=== PATIENT | male | born 1955 | race Caucasian/White ===

== ENCOUNTER → 2018-07-14 15:45 | Outpatient (CLI) | payer OTHER, SELFPAY ==
[2018-07-14 16:38] LABS: Add Manual Diff / Slide Review NO; Basophils Percent Auto 3.7 % (0-2); Eosinophils Percent Auto 3.9 % (2-4); Hematocrit 36.8 % (41-53); Hemoglobin 12.8 g/dL (13.5-17.5); Lymphocytes Percent Auto 27.6 % (25-40); Mean Corpuscular HGB Conc 34.7 % (30-36); Mean Corpuscular Hemoglobin 38.1 PG (26-34); Monocytes Percent Auto 7.6 % (3-14); Neutrophils Absolute Auto 5400 /uL (1500-7000); Neutrophils Percent Auto 57.2 % (50-75); Platelet Count 264 X10^3/uL (150-400); Red Blood Cell Count 3.35 X10^6/uL (4.5-5.9); Red Cell Distribution Width 13.7 % (11.6-14.8); White Blood Cell Count 9.5 X10^3/uL (4.5-11.0)
[2018-07-14 16:50] LABS: Blood Urea Nitrogen 24 mg/dL (9-20); Calcium 9.7 mg/dL (8.4-10.2); Carbon Dioxide 26 mmol/L (22-32); Chloride 102 mmol/L (98-107); Estimated Glomerular Filt Rate > 60.0 mL/min (>60); Glucose 114 mg/dL (80-110); HEMOLYSIS < 15 (0-50); Hemoglobin A1C% w Est Avg Glu 5.9 % (4.0-6.0); Potassium 4.6 mmol/L (3.4-5.1); Sodium 141 mmol/L (137-145)
[2018-07-14 16:51] LABS: INR 1.1 (0.9-1.3); Prothrombin Time 12.6 SECONDS (10.1-12.7)
[2018-07-14 16:54] LABS: PTT Partial Thromboplastin Tim 29 SECONDS (26.4-36.2)
== END ==
PROVIDERS: PCP Family Medicine; Visit Provider Orthopaedic Surgery Orthopaedic Surgery of the Spine
DX: Z01.812 Encounter for preprocedural laboratory examination (principal)
CPT/HCPCS: 36415; 80048; 83036; 85025; 85610; 85730; 93005

== ENCOUNTER 2018-07-16 06:38 | Inpatient (IN) | payer OTHER, SELFPAY ==
[2018-07-14 12:29] VITALS: BMI 30.5
[2018-07-16] VITALS (17 sets, daily range): BP systolic 112–133; BP diastolic 56–76; PULSE 52–66; RESP 9–59; TEMP 36.2–37; O2SAT 13–98; BMI 30.5
--- NOTE | 2018-07-16 | DI.RAD.S_ITS ---
PROCEDURE: XR LUMBAR SPINE 2-3V INDICATIONS: L4-5. L5-S1 TLIF TECHNIQUE: 2 views of the lumbar spine were acquired. COMPARISON: [facility], , -SPINE 2-3 VIEWS, 05/19/2016, 16:15. FINDINGS: 2 spot fluoroscopic intraoperative views demonstrating posterior spinal fixation with paraspinal rods and pedicle screws from L4-S1, with interbody cage grafts. There is expected intraoperative alignment. Dictated by: Nikita Laura M.D. on 07/16/2018 at 11:42 Approved by: Nikita Laura M.D. on 07/16/2018 at 11:44
[2018-07-16] MEDS: LACTATED RINGERS 1,000 ML 42 ML IV ×2 (07:00→11:54)
[2018-07-16] MEDS: CEFAZOLIN 2 GM/100 ML FROZ.PIGGY IV ×2 (07:54→16:04)
--- NOTE | 2018-07-16 08:39 | SUR.OPER ---
Prone on spine table, head in foam head support, padded chest and pelvic supports, gel pad at knees, lower legs supported by pillows; nipples, genitalia and toes free of pressure, arms secured on foam padded arm boards at <90 degrees abduction. Tape over blanket at thigh secured to table.
[2018-07-16] MEDS: BUPIVACAINE LIPOSOME 266 MG/20 ML VIAL INJ (09:12)
[2018-07-16] MEDS: BUPIVACAINE 0.25% W/ EPI VIAL 30 ML INJ (09:12)
[2018-07-16] MEDS: ACETAMINOPHEN 1,000 MG/100 ML VIAL IV (10:58)
--- NOTE | 2018-07-16 11:33 | P.OP_ITS ---
Operative Date/Time/Diagnoses Date of procedure: 07/16/18 Time of procedure: 08:21 Pre-op diagnosis: 1. L4-5, L5-S1 history of laminectomy with spinal stenosis 2. L4-5, L5-S1 spondylosis with radiculopathy Post-op diagnosis: same Procedure & Clinicians Procedure: 1. L4-5, L5-S1 Postero-lateral and posterior interbody fusion 2. L4-5, L5-S1 interbody cage placement. 3. L4-5, L5-S1 decompressive laminectomy with bilateral facetecomies 4. L4-5, L5-S1 Posterior segmental instrumentation 5. [place] of bone marrow from iliac crest 6. Utilization of microsurgical technique and operating microscope Same procedure as scheduled: Yes Indications: Patient has been having chronic back pain and worsening lumbar radiculopathy. Patient had previous lumbar hemilaminectomy with persisting radiculopathy and progressive weakness to his legs. Patient failed multiple conservative management with worsening pain weakness and numbness in her lower extremity. Patient has been having difficulty performing activity of daily living. After discussing risks benefits of treatment options, patient elected proceed with surgery. Surgeon: Albertina Martin Strategic Client Executive: Earline Luis Click Yes if Unassisted: No Anesthesia Type: General Operative Notes Closure Type: primary Specimen(s): none sent Implants & Drains: Globus revolve screws, Rise cages Applied: catheter Estimated Blood Loss (mL): 100 Blood products transfused: none Procedure in detail: Patient was seen in the preoperative area. Risks and benefits of the surgery was discussed with the patient. Informed consent was obtained from the patient and placed in the chart. Surgical site was marked. Patient was taken to the operative room. General anesthesia was administered. Prophylactic antibiotic was given to the patient less than 30 min before the incision was made. Patient was placed into a prone position on the Russell table. Patient's back was then prepped and draped in the sterile fashion. Time- out was performed at this time. Using AP and lateral C-arm imaging the interval between L4-S1 was identified and marked on patient's back. A 2 inch incision 2 in from midline was made on the left side first. The fascia was incised in line with skin incision. Globus MARS retractors was placed inside the incision and docked onto the L4 and L5 lamina. Using microsurgical technique and operating microscope, a L4 and L5 laminectomy and L4-5 L5-S1 facetectomy was performed using a Kerrison rongeur. The disc space at L4-5, L5-S1 was identified. And a total diskectomy was performed at L4-5, L5-S1 level. The endplates were decorticated using a rasp and shaver. The total diskectomy and decortication was performed at L4-5, L5- S1 level in order to to accomplish a L4-5, L5-S1 fusion. The local bone from the laminectomy and facetectomy was saved for local bone grafting. After the total diskectomy and decortication was completed, Globus viacell bone graft material was combined with local bone that was harvested earlier. At this time , a separate skin is incision was made over the iliac crest. A Jamshidi needle was inserted into the iliac crest through a separate skin incision. 5 cc of bone marrow aspiration was obtained through the separate skin incision using a Jamshidi needle from the iliac crest. The bone marrow aspiration was combined with local bone and the via cell bone grafting material. The bone grafting material was placed into the L4-5, L5-S1 interbody space along with two cages, one expandable cage at each level. The cages were expanded to their maximum height using the torque limiting screwdriver. At this time a mirror image incision was made on the right side. The fascia was incised in line with the skin incision. Globus MARS retractor was inserted and docked onto the L4-5, L5-S1 posterolateral gutter. Using the power drill, posterior-lateral decortication was performed at L4-5, L5-S1 level until bleeding cortical bone was identified. The remaining bone grafting material was placed into the L4-5 L5-S1 posterior lateral gutter he order to accomplish posterolateral fusion at the L4-5 L5-S1 levels. Using the double C-arm technique, pedicle screws were placed into the L4, L5, S1 pedicles bilaterally. This was done by placing the Jamshidi needle into the pedicles, then placing the guidewires over the Jamshidi needle, and finally placing the cannulated screws over the guidewires bilaterally. After the pedicle screws were placed, 2 titanium rods was locked into the heads of the pedicle screws using locking caps and torque limiting screwdriver. Total 6 pedicles screws were placed. After all the hardware was placed, and confirmed with AP and lateral C-arm imaging, the wound was then irrigated with sterile normal saline and packed with Ray-Akash gauze for 3 min to accomplish hemostasis. After the gauze was removed the deep fascia was closed with #1 Vicryl suture. The subcutaneous layer was closed with 2-0 Vicryl. The skin was closed with skin bill. Patient tolerated the procedure well. There were no complications. Complications: none Condition: stable Disposition: PACU Plan for aftercare: Admit to inpatient hospital
[2018-07-16] MEDS: HYDROMORPHONE 2 MG INJ 0.5 MG IV ×4 (11:50→12:27)
--- NOTE | 2018-07-16 11:57 | SUR.PHASEI ---
Urine mildly cloudy. Dr. Martin and Verónica notified. No new orderrs.
[2018-07-16] MEDS: LORazepam 2 MG/ML SYRINGE 0.5 MG IV (12:12)
[2018-07-16] MEDS: INSULIN ASPART 100 UNIT/ML 10ML VIAL SUBCUT (12:25)
--- NOTE | 2018-07-16 12:53 | SUR.PHASEI ---
Report called to Shanti
--- NOTE | 2018-07-16 12:54 | SUR.PHASEI ---
Pt c/o 10/10 Lt ankle pain, ankle wnl, weak movement to andrzej ankles. Dr. Martin notified by calling into room 3 and passing message to [employer]. No new orders.
--- NOTE | 2018-07-16 13:11 | SUR.PHASEI ---
Pt transferred to the floor. VS stable. O2 sat 95%ra, pt awake. Drsg cdi. IV saline locked. Pt reported 5/10 Lt ankle pain, able to move andrzej ankles well, +pp x2, ble warm, cap refill wnl. Belongings bag with patient.
--- NOTE | 2018-07-16 13:12 | SUR.PHASEI ---
Addendum: Report given to Shanti.
[2018-07-16] MEDS: OXYCODONE IR 5 MG TABLET 10 MG PO ×3 (14:09→23:49)
[2018-07-16] MEDS: SODIUM CHLORIDE 0.9% 1,000 ML 100 ML IV (14:11)
--- NOTE | 2018-07-16 14:28 | PC.NURSE ---
Pt admitted to room 219. Dressing to lower back is cdi s drainage. He complains of pain 9/10 to lower back and 5/10 pain to his l.ankle. Denies any numbness or tingling. He is A&Ox3 but has periods of grogginess. IV to r.hand/wrist area patent and infusing NS at 100cc/hr. Pt complains of some burning to the end of his urethra. Vaseline put on end of penis to help discomfort. Just given 2 oxycodone for discomfort about 30 minutes ago. Will check on pts pain in 30 minutes.
--- NOTE | 2018-07-16 15:31 | PT.IIE ---
Current Diagnoses Foot drop, left foot (07/16/18) Spinal stenosis, lumbar region without neurogenic claudication (07/16/18) Postlaminectomy syndrome, not elsewhere classified (07/16/18) Surgery Performed Operation Date: 07/16/18 07:45 Actual Procedures p L4-5, L5-S1 TLIF w/Posterior Instru. - Albertina Martin MD Surgical History (Last Updated 07/14/18 @ 12:42 by Faye Elizabeth RN) History of arthroscopy of both knees (Acute) History of arthroscopy of both shoulders (Acute) S/P CABG x 3 (Acute ~2001) S/P lumbar microdiscectomy (Acute 05/19/16) Medical History (Last Updated 07/14/18 @ 13:36 by Faye Elizabeth RN) ASCVD (arteriosclerotic cardiovascular disease) (Acute) Atrial fibrillation/flutter (Acute) CHF (congestive heart failure) (Acute) DDD (degenerative disc disease) (Acute) HTN (hypertension) (Acute) Hyperlipidemia (Acute) Murmur (Acute) Palpitations (Acute) Spinal stenosis (Acute) Type 2 diabetes mellitus (Acute) Physical Therapy Inpatient Evaluation/Re-Eval M1 PT/OT-IP Prior Functional Status Start: 07/16/18 17:12 Freq: NEEDED Status: Active Protocol: Document 07/16/18 15:31 AB (Rec: 07/16/18 17:26 AB [id number]) Medical Review Prior Functional Status Medical History Reviewed Yes Communication able to make needs known Mobility and Gait pt stated that he is independent with all mobilities and ambulation without AD Social History Household Members spouse Living Arrangements House Number of Floors (Floors) Two Floors Number of Stairs To Enter/Railing? pt stays on main level of the house; has 2 steps to enter without rails Home Environment High Toilet Tub/Shower Employment Status Retired Additional Social History Comment stated that they don't have a FWW but they may have access to a SPC; has a hand held shower but is not installed yet M2 PT-IP Current Condition Start: 07/16/18 17:12 Freq: NEEDED Status: Active Protocol: Document 07/16/18 15:31 AB (Rec: 07/16/18 17:26 AB [id number]) Physical Therapy Current Condition Current Condition Evaluation Date 07/16/18 Treatment Diagnosis s/p L4-5, L5-S1 TLIF and lami; difficulty in walking Onset Date 07/16/18 Precautions Lumbar Precautions Log Roll No Twisting Limit Bending Lifting Restriction of 10 lbs Gait Belt above Incisional Area M3 PT-IP Subjective Start: 07/16/18 17:12 Freq: NEEDED Status: Active Protocol: Document 07/16/18 15:31 AB (Rec: 07/16/18 17:26 AB [id number]) Subjective Physical Therapy Visit Type Type Initial Evaluation Visit Start Time 15:31 Visit Stop Time 16:23 Total Visit Minutes 52 Number of DRAIN CLEANER Visits 0 Physical Therapy Visit Comments Patient Comments pt agreeable to get up Therapy Pain Assessment Pain When Pain Assessed At Rest Pain Present Pain Present Pain Reported Location Left Lower Leg Intensity 9 Scale Used Numeric (1 - 10) Pain Management Techniques Re-positioning Timing of Activity with Medications M4 PT-IP Mobility and Gait Start: 07/16/18 17:12 Freq: NEEDED Status: Active Protocol: Document 07/16/18 15:31 AB (Rec: 07/16/18 17:26 AB [id number]) PT-Bed Mobility Assessment Rolling Type of Rolling Log Rolling Level of Assist Contact Guard Assistance Supine to Sit Supine to Sit Contact Guard Assistance Sit to Supine Sit to Supine Contact Guard Assistance Scooting Scooting to Edge of Bed Contact Guard Assistance PT-Transfer Assessment Sit to and From Stand Sit to and from Stand Minimal Assistance 1 Person Assistance Use of Upper Extremities Equipment Transfer Assistive Device Gait Belt Front Wheeled Walker Orthotic/Prosthetic Devices or Brace: No Transfers Transfer Destination Bed Transfer Technique Stand Step Pivot Transfer Ability Level of Assist Minimal Assistance 1 Person Assistance Use of Upper Extremities Comments Mobility Comments pt agreed to sit up on chair after ambulation. positioned on chair but stated that back pain has increased and just wants to go back to bed. assisted pt back to bed. Gait Assessment Gait Gait Assistance Required: Contact Guard Assist Minimum Assistance Distance (Feet) 30 Able to Maintain Weight Bearing Status Yes During Gait Assistive Devices Assistive Device Gait Belt Front Wheeled Walker Orthotic/Prosthetic Devices or Brace: No Gait Deviations General Gait Pattern Antalgic Decreased Stride Length Decreased Feet Clearance Factors Limiting Gait Function Factors Limiting Gait Function Decreased Activity Tolerance Decreased Strength Limited Range of Motion Pain Poor Balance Poor Safety Awareness PT-Balance Assessment Sitting Balance and Reactions Static Sitting Balance Ability Good Dynamic Sitting Balance Ability Good Standing Balance and Reactions Static Standing Balance Ability Fair Dynamic Standing Balance Ability Fair Device Used FWW M5 PT-IP Objective Assessments Start: 07/16/18 17:12 Freq: NEEDED Status: Active Protocol: Document 07/16/18 15:31 AB (Rec: 07/16/18 17:26 AB [id number]) Orientation Orientation/Cognition Level of Alertness Alert Orientation Name Age Birthday Month Date Year Day of Week Place Situation Safety Awareness Understands Safety Issues Memory Description No Deficits Noted Gross Range of Motion Lower Extremity ROM Assessment Within Functional Limits Strength Lower Extremity Strength Assessment Bilaterally Impaired Comments Strength Comments LLE weaker than RLE RLE:4-/5 LLE: 3+/5 Coordination Assessment Gross Coordination Gross Coordination WNL Sensation Assessment Sensation Gross Sensation Right LE Impaired Light Touch Impaired Sensation Description Numbness Comments Sensation Comments c/o numbness from L hip down to L knee Muscle Tone Muscle Tone WNL Yes M6 PT-IP Treatment Start: 07/16/18 17:12 Freq: NEEDED Status: Active Protocol: Document 07/16/18 15:31 AB (Rec: 07/16/18 17:26 AB [id number]) Physical Therapy Treatment Education Education Provided Precautions Weight Bearing Status Post-Op Packet Safety M7 PT-IP Assessment and Plan Start: 07/16/18 17:12 Freq: NEEDED Status: Active Protocol: Document 07/16/18 15:31 AB (Rec: 07/16/18 17:26 AB [id number]) PT Summary Assessment and Plan Potential Rehabilitation Potential Good Status of Condition at Evaluation Evolving Summary Impairments Pain ROM Strength Balance Coordination Sensation Tone Cognition Bed Mobility Transfers Gait Activity Tolerance Assessment Summary pt requiring CGA to min A with mobility and will likely improve during hospital stay. pt will have his spouse to assist him at home and will complete caregiver training when appropriate. pt also has 2 steps to enter the house without rail and has to complete stair climbing prior to d/c home. pt also does not have a FWW and wants to purchase one from [employer]. will request for DME order. Goals Bed Mobility Goal Standby Assistance Transfer Goal Standby Assistance Front Wheeled Walker Gait Goal Standby Assistance Front Wheel Walker Gait Distance 200 Other Goals up/down 2 steps without rails CGA Days to Meet Goals 3 Frequency of Treatment Frequency Of Treatment Twice a Day Treatment Plan Physical Therapy Treatment Plan Bed Mobility Training Transfer Training Gait Training Therapeutic Exercise Balance Retraining Post Op Education Discharge Planning Hot or Cold Pack Neuromuscular Re-ed Coordination Retraining Manual Therapy Other Recommendations and Next Treatment ambulation, bed mobility, Focus caregiver training if appropriate, stair climbing Recommendations To Nursing Amount of Assist Needed 1 Person Assist Discharge Recommendations PT Discharge Recommendations Home with Assistance Equipment Needed for Home Before FWW: needs doctor's order Discharge
[2018-07-16] MEDS: GABAPENTIN 300 MG CAPSULE PO ×2 (16:03→20:22)
[2018-07-16] MEDS: DRONEDARONE 400 MG TABLET PO (20:22)
[2018-07-16] MEDS: CARVEDILOL 12.5 MG TABLET PO (20:22)
[2018-07-16] MEDS: ATORVASTATIN 20 MG TABLET 40 MG PO (20:22)
[2018-07-16] MEDS: DOCUSATE 100 MG CAPSULE PO (20:22)
[2018-07-16] MEDS: SENNOSIDES 8.6 MG TABLET 17.2 MG PO (20:22)
[2018-07-17] MEDS: HYDROMORPHONE 1 MG INJ 0.5 MG IV (01:04)
[2018-07-17] MEDS: hydrOXYzine pamoate 25 MG CAPSULE PO ×2 (01:04→06:11)
[2018-07-17] MEDS: SODIUM CHLORIDE 0.9% 1,000 ML 100 ML IV (01:06)
[2018-07-17] MEDS: CEFAZOLIN 2 GM/100 ML FROZ.PIGGY IV (03:01)
[2018-07-17] MEDS: OXYCODONE IR 5 MG TABLET 10 MG PO ×3 (03:04→09:28)
[2018-07-17 06:23] VITALS: BP 108/56; PULSE 58; RESP 18; TEMP 36.4; O2SAT 95
[2018-07-17 06:37] LABS: Hematocrit 31.5 % (41-53); Hemoglobin 10.7 g/dL (13.5-17.5)
--- NOTE | 2018-07-17 07:23 | PM.PNPO.1 ---
Exam Vital Signs (past 8 hours): - 07/16/18 23:59 07/17/18 06:23 Temperature 97.5 F L 97.5 F L Pulse Rate 66 58 L Respiratory Rate 20 18 Blood Pressure 120/59 L 108/56 L Pulse Oximetry 95 95 Oxygen Delivery Method Room Air Oxygen Flow Rate 0 Objective Labs Result Diagrams: 07/17/18 05:31 Assessment & Plan Post-op Postoperative Procedures Operation Date: 07/16/18 07:45 Actual Procedures Side Surgeon p L4-5, L5-S1 TLIF w/Posterior Instru. Albertina Martin MD Quality VTE Deep Vein Thrombosis/Pulmonary Embolism Present on Admission: No
[2018-07-17 07:25] VITALS: BP 119/76; PULSE 58; RESP 20; TEMP 36.9; O2SAT 96
--- NOTE | 2018-07-17 08:06 | PM.DS.1 ---
History of Present Illness Date Patient Seen: 07/17/18 Time Patient Seen: 08:07 Chief complaint: lumbar [id number] Narrative: Patient seen bedside s/p L4-5, L5-S1 transforaminal laminectomy and interbody fusion with posterior instrumentation scheduled for 07/16/2018 at [facility] with Dr. Martin. Patient is resting comfortably, and states that he has some pain but it is manageable. Denies CP, SOB, calf pain. He would like to go home today. Discharge Providers Date of admission: 07/16/18 06:38 Primary care physician: Trevor Alaniz MD Consults: 07/16/18 13:09 Consult to Occupational Therapy Evaluate & Treat Comment: Physician Instructions: Evaluate and treat Consult to Physical Therapy Evaluate & Treat Comment: Physician Instructions: Evaluate and Treat Discharge provider: Taya Byrne PA-C Discharge Date: 07/17/18 Summary Discharge Diagnosis: 1. Left foot drop 2. Lumbar post-laminectomy syndrome 3. 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 Spinal stenosis of lumbar region with radiculopathy Hospital Course: Patient admitted to the hospital s/p L4-5, L5-S1 transforaminal laminectomy and interbody fusion with posterior instrumentation scheduled for 07/16/2018 at [facility] with Dr. Martin. He tolerated the procedure well with no major complications. He was transferred to the acute care floor where he was placed on the standard lumbar spine postoperative protocol. He was seen by Physical therapy who recommended that he be discharged home. He is stable and ready for discharge on 07/17/2018. Status at Discharge Cognitive/behavioral status at discharge: Alert oriented x4 Functional status at discharge: uses cane/walker Overall status at discharge: patient is progressing back to baseline Time Spent with Patient Less than 30 minutes Exam Vital Signs (past 8 hours): - 07/17/18 06:23 07/17/18 08:38 Temperature 97.5 F L Pulse Rate 58 L 59 L Respiratory Rate 18 Blood Pressure 108/56 L 119/76 Pulse Oximetry 95 Oxygen Delivery Method Room Air Oxygen Flow Rate 0 Narrative Exam Narrative: Well-developed well-nourished no acute distress. Alert and oriented x3. Dressing on the lumbar spine is clean dry and intact. His calves are soft and compressible and no focal deficits noted. Objective Labs Result Diagrams: 07/17/18 05:31 Labs: Laboratory Results - last 24 hr 07/17/18 05:31 Hgb 10.7 L Hct 31.5 L Discharge Plan Discharge Plan Patient Disposition: Home Discharge comment: discharge if moving well, pain is controlled, and is able to urinate. change dressing prior to d/c to cover site. Discharge Med Rec/Prescriptions Prescriptions: New acetaminophen 325 mg Tablet 650 mg PO Q6HR PRN (Reason: Pain, Mild (1-3)) Qty: 0 RF: 0 docusate sodium 100 mg Capsule 100 mg PO BID Qty: 0 RF: 0 hydroxyzine pamoate 25 mg Capsule 25 mg PO Q4HR PRN (Reason: Nausea And Vomiting) 50 Days RF: 0 oxycodone 10 mg tablet See Label Instructions .ROUTE .COMPLEX PRN (Reason: pain) Qty: 40 RF: 0 Continue atorvastatin [Lipitor] 80 MG tablet 40 mg PO HS Qty: 30 RF: 0 carvedilol [Coreg] 25 MG tablet 12.5 mg PO BID Qty: 0 RF: 0 metformin [Glucophage XR] 500 MG tablet extended release 24 hr 500 mg PO DAILY Qty: 0 RF: 0 epinephrine 0.3 MG/0.3 ML auto-injector 0.3 mg IM PRN PRN (Reason: Allergic Reaction) Qty: 0 RF: 0 lisinopril 2.5 mg Tablet 2.5 mg PO DAILY RF: 0 dronedarone [Multaq] 400 mg Tablet 400 mg PO BID RF: 0 Discontinued rivaroxaban [Xarelto] 20 MG tablet 20 mg PO QDAY Qty: 0 RF: 0 hydrocodone-acetaminophen 5 MG/325 MG tablet 1 tab PO Q6HP PRN (Reason: pain) Qty: 0 RF: 0 Follow up/Referrals: Albertina Martin MD [Physician] - 07/28/18 1:40 pm (Follow up with Taya Byrne PA-C at the [facility] Provider Discharge Instructions Diet: Diet as Tolerated Activity: Weightbearing as tolerated, use walker until stable on feet. Limit bending/twisting/lifting greater than 5 lbs. Cold/Heat Therapy: Apply ice 20 minutes at a time to affected area as needed for pain/swelling. Skin/Wound/Dressing Care Report to your healthcare provider any signs of infection, such as:: chills, fever, night sweats, increased pain, unusual drainage and unusual redness Dressing: Keep dressing CDI. May shower with dressing in place but no soaking. Visit Report/Discharge Packet Instructions: DI for Transforaminal Lumbar Interbody Fusion Discharge Data Primary Care Provider: Trevor Alaniz Attending Provider: Albertina Martin Admit Date/Time: 07/16/18 06:38 Quality VTE Deep Vein Thrombosis/Pulmonary Embolism Present on Admission: No
[2018-07-17 08:38] VITALS: BP 119/76; PULSE 59
[2018-07-17] MEDS: CARVEDILOL 12.5 MG TABLET PO (08:38)
[2018-07-17] MEDS: DRONEDARONE 400 MG TABLET PO (08:38)
[2018-07-17] MEDS: GABAPENTIN 300 MG CAPSULE PO (08:39)
[2018-07-17] MEDS: METFORMIN XR 500 MG TABLET PO (08:39)
[2018-07-17] MEDS: LISINOPRIL 5 MG TABLET 2.5 MG PO (08:39)
[2018-07-17] MEDS: DOCUSATE 100 MG CAPSULE PO (08:39)
--- NOTE | 2018-07-17 09:15 | PT.IPTN ---
Current Diagnoses Foot drop, left foot (07/16/18) Spinal stenosis, lumbar region without neurogenic claudication (07/16/18) Postlaminectomy syndrome, not elsewhere classified (07/16/18) Surgery Performed Operation Date: 07/16/18 07:45 Actual Procedures p L4-5, L5-S1 TLIF w/Posterior Instru. - Albertina Martin MD Physical Therapy Treatment Note M2 PT-IP Current Condition Start: 07/16/18 17:12 Freq: NEEDED Status: Active Protocol: Document 07/17/18 09:15 [facility] (Rec: 07/17/18 10:09 [facility] [id number]) Physical Therapy Current Condition Current Condition Evaluation Date 07/16/18 Treatment Diagnosis s/p L4-5, L5-S1 TLIF and lami; difficulty in walking Onset Date 07/16/18 Precautions Lumbar Precautions Log Roll No Twisting Limit Bending Lifting Restriction of 10 lbs Gait Belt above Incisional Area M3 PT-IP Subjective Start: 07/16/18 17:12 Freq: NEEDED Status: Active Protocol: Document 07/17/18 09:15 [facility] (Rec: 07/17/18 10:09 [facility] [id number]) Subjective Physical Therapy Visit Type Type Treatment Note Visit Start Time 08:56 Visit Stop Time 09:15 Total Visit Minutes 19 Number of SUEDING MACHINE TENDER Visits 0 Physical Therapy Visit Comments Patient Comments pt wanting to d/c today, he did not sleep well but willing to walk in hallway. Therapy Pain Assessment Pain When Pain Assessed At Rest Pain Present Pain Present Pain Reported Location low back Intensity 8 Scale Used Numeric (1 - 10) M4 PT-IP Mobility and Gait Start: 07/16/18 17:12 Freq: NEEDED Status: Active Protocol: Document 07/17/18 09:15 [facility] (Rec: 07/17/18 10:09 [facility] [id number]) PT-Bed Mobility Assessment Rolling Type of Rolling Log Rolling Level of Assist Contact Guard Assistance Supine to Sit Supine to Sit Contact Guard Assistance Sit to Supine Sit to Supine Contact Guard Assistance Scooting Scooting to Edge of Bed Independent PT-Transfer Assessment Sit to and From Stand Sit to and from Stand Standby Assistance Use of Upper Extremities Equipment Transfer Assistive Device Gait Belt Front Wheeled Walker Orthotic/Prosthetic Devices or Brace: No Transfers Transfer Destination Bed Transfer Technique Stand Step Pivot Transfer Ability Level of Assist Standby Assistance Gait Assessment Gait Gait Assistance Required: Standby Assistance 1 Person Assist Distance (Feet) 300 Assistive Devices Assistive Device Gait Belt Front Wheeled Walker Orthotic/Prosthetic Devices or Brace: No Gait Deviations General Gait Pattern Antalgic Decreased Stride Length Factors Limiting Gait Function Factors Limiting Gait Function Decreased Activity Tolerance Decreased Strength Pain Poor Balance Comments Gait Comments pt with standing rest break x30 sec after gait 200 ft, mainly due to low back discomfort but no increase in pain with mobility or after treatment. Stair Climbing Assessment Evaluation Level of Assist On Stairs Standby Assistance Devices Stair Climbing Assistive Devices Right Railing Technique/Endurance Stair Climbing Direction Ascend and Descend Stair Climbing Technique Step to Step Comments Stair Climbing Comments pt used one rail at this time, discussed to use a cane up/ down to get into home. Pt has one step to get into home, then another rise into the home which he can use door frame to steady himself. M5 PT-IP Objective Assessments Start: 07/16/18 17:12 Freq: NEEDED Status: Active Protocol: Document 07/16/18 15:31 AB (Rec: 07/16/18 17:26 AB [id number]) Orientation Orientation/Cognition Level of Alertness Alert Orientation Name Age Birthday Month Date Year Day of Week Place Situation Safety Awareness Understands Safety Issues Memory Description No Deficits Noted Gross Range of Motion Lower Extremity ROM Assessment Within Functional Limits Strength Lower Extremity Strength Assessment Bilaterally Impaired Comments Strength Comments LLE weaker than RLE RLE:4-/5 LLE: 3+/5 Coordination Assessment Gross Coordination Gross Coordination WNL Sensation Assessment Sensation Gross Sensation Right LE Impaired Light Touch Impaired Sensation Description Numbness Comments Sensation Comments c/o numbness from L hip down to L knee Muscle Tone Muscle Tone WNL Yes M6 PT-IP Treatment Start: 07/16/18 17:12 Freq: NEEDED Status: Active Protocol: Document 07/17/18 09:15 [facility] (Rec: 07/17/18 10:09 [facility] [id number]) Physical Therapy Treatment Education Education Provided Precautions Safety Other Treatments Other Treatment Performed able to state his precautions and maintained them throughout session. M7 PT-IP Assessment and Plan Start: 07/16/18 17:12 Freq: NEEDED Status: Active Protocol: Document 07/17/18 09:15 [facility] (Rec: 07/17/18 10:09 [facility] [id number]) PT Summary Assessment and Plan Summary Assessment Summary POD #1 L4-5, L5-S1 TLIF. Pt able to get in/out of bed with good log roll technique and CGA, and managed stairs using one rail with SBA (pt did not want to perform without rail, discussed this with him but still wanted to use one rail for support). Pt at this time requires the use of a FWW for gait, especially when fatigued he becomes more dependent on the FWW. It is highly recommended that pt d/c with a FWW for home use due to gait impairments, as well as assist with decreased risk of falls and assistance with pain. Expect pt to be able to d/c when medically stable, likely today if pain is controlled and able to urinate (catheter taken out by RN at start of this session). Goals Bed Mobility Goal Standby Assistance Transfer Goal Standby Assistance Front Wheeled Walker Gait Goal Standby Assistance Front Wheel Walker Gait Distance 200 Other Goals up/down 2 steps without rails CGA Days to Meet Goals 3 Frequency of Treatment Frequency Of Treatment Twice a Day Treatment Plan Other Recommendations and Next Treatment CG with , review Focus precautions, gait and stairs. Recommendations To Nursing Amount of Assist Needed 1 Person Assist Discharge Recommendations PT Discharge Recommendations Home with Assistance Equipment Needed for Home Before FWW: needs doctor's order Discharge
--- NOTE | 2018-07-17 10:11 | P.DS_ITS ---
History of Present Illness Date Patient Seen: 07/17/18 Time Patient Seen: 08:07 Chief complaint: lumbar [id number] Narrative: Patient seen bedside s/p L4-5, L5-S1 transforaminal laminectomy and interbody fusion with posterior instrumentation scheduled for 07/16/2018 at [facility] with Dr. Martin. Patient is resting comfortably, and states that he has some pain but it is manageable. Denies CP, SOB, calf pain. He would like to go home today. Discharge Providers Date of admission: 07/16/18 06:38 Primary care physician: Trevor Alaniz MD Consults: 07/16/18 13:09 Consult to Occupational Therapy Evaluate & Treat Comment: Physician Instructions: Evaluate and treat Consult to Physical Therapy Evaluate & Treat Comment: Physician Instructions: Evaluate and Treat Discharge provider: Taya Byrne PA-C Discharge Date: 07/17/18 Summary Discharge Diagnosis: 1. Left foot drop 2. Lumbar post-laminectomy syndrome 3. 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 Spinal stenosis of lumbar region with radiculopathy Hospital Course: Patient admitted to the hospital s/p L4-5, L5-S1 transforaminal laminectomy and interbody fusion with posterior instrumentation scheduled for 07/16/2018 at [facility] with Dr. Martin. He tolerated the procedure well with no major complications. He was transferred to the acute care floor where he was placed on the standard lumbar spine postoperative protocol. He was seen by Physical therapy who recommended that he be discharged home. He is stable and ready for discharge on 07/17/2018. Status at Discharge Cognitive/behavioral status at discharge: Alert oriented x4 Functional status at discharge: uses cane/walker Overall status at discharge: patient is progressing back to baseline Time Spent with Patient Less than 30 minutes Exam Vital Signs (past 8 hours): - 07/17/18 06:23 07/17/18 08:38 Temperature 97.5 F L Pulse Rate 58 L 59 L Respiratory Rate 18 Blood Pressure 108/56 L 119/76 Pulse Oximetry 95 Oxygen Delivery Method Room Air Oxygen Flow Rate 0 Narrative Exam Narrative: Well-developed well-nourished no acute distress. Alert and oriented x3. Dressing on the lumbar spine is clean dry and intact. His calves are soft and compressible and no focal deficits noted. Objective Labs Result Diagrams: 07/17/18 05:31 Labs: Laboratory Results - last 24 hr 07/17/18 05:31 Hgb 10.7 L Hct 31.5 L Discharge Plan Discharge Plan Patient Disposition: Home Discharge comment: discharge if moving well, pain is controlled, and is able to urinate. change dressing prior to d/c to cover site. Discharge Med Rec/Prescriptions Prescriptions: New acetaminophen 325 mg Tablet 650 mg PO Q6HR PRN (Reason: Pain, Mild (1-3)) Qty: 0 RF: 0 docusate sodium 100 mg Capsule 100 mg PO BID Qty: 0 RF: 0 hydroxyzine pamoate 25 mg Capsule 25 mg PO Q4HR PRN (Reason: Nausea And Vomiting) 50 Days RF: 0 oxycodone 10 mg tablet See Label Instructions .ROUTE .COMPLEX PRN (Reason: pain) Qty: 40 RF: 0 Continue atorvastatin [Lipitor] 80 MG tablet 40 mg PO HS Qty: 30 RF: 0 carvedilol [Coreg] 25 MG tablet 12.5 mg PO BID Qty: 0 RF: 0 metformin [Glucophage XR] 500 MG tablet extended release 24 hr 500 mg PO DAILY Qty: 0 RF: 0 epinephrine 0.3 MG/0.3 ML auto-injector 0.3 mg IM PRN PRN (Reason: Allergic Reaction) Qty: 0 RF: 0 lisinopril 2.5 mg Tablet 2.5 mg PO DAILY RF: 0 dronedarone [Multaq] 400 mg Tablet 400 mg PO BID RF: 0 Discontinued rivaroxaban [Xarelto] 20 MG tablet 20 mg PO QDAY Qty: 0 RF: 0 hydrocodone-acetaminophen 5 MG/325 MG tablet 1 tab PO Q6HP PRN (Reason: pain) Qty: 0 RF: 0 Follow up/Referrals: Albertina Martin MD [Physician] - 07/28/18 1:40 pm (Follow up with Taya Byrne PA-C at the [facility].) Provider Discharge Instructions Diet: Diet as Tolerated Activity: Weightbearing as tolerated, use walker until stable on feet. Limit bending/twisting/lifting greater than 5 lbs. Cold/Heat Therapy: Apply ice 20 minutes at a time to affected area as needed for pain/swelling. Skin/Wound/Dressing Care Report to your healthcare provider any signs of infection, such as:: chills, fever, night sweats, increased pain, unusual drainage and unusual redness Dressing: Keep dressing CDI. May shower with dressing in place but no soaking. Visit Report/Discharge Packet Instructions: DI for Transforaminal Lumbar Interbody Fusion Discharge Data Primary Care Provider: Trevor Alaniz Attending Provider: Albertina Martin Admit Date/Time: 07/16/18 06:38 Quality VTE Deep Vein Thrombosis/Pulmonary Embolism Present on Admission: No
--- NOTE | 2018-07-17 10:48 | CM.DANOTE ---
DCP: Case received, EMR reviewed and met with patient. Introduced self and role. DCP template completed with information currently available. Patient is a 62 year old male who admitted yesterday morning to the care of the hospitalist team. PCP: Dr. Alaniz. Payer: confirmed: [employer]. Patient came to hospital for surgical procedure. Patient had L4-5, L5-S1 Lateral and Posterior Fusion. Met with patient briefly in room. Alert and oriented, independent. Lives in [place] with his spouse. Is independent at home, no DME supplies. Stated that he has been dealing with back pain for a while. P: DCP to continue to follow. Patient may be discharged home today. Brie Lopez RN/[employer]
--- NOTE | 2018-07-17 12:38 | PC.NURSE ---
Discharge Pt states he took all belongings with him. PIV removed prior to d/c. pt aware of f/u apt with MD and to f/u with PCP as well. Also to contact MD with any additional questions or concerns. Aware of spine precautions. left with FWW and rx at d/c. d/c instructions provided to pt and his . Pt left in w/c with PHARMACEUTICAL WORKER escort to car with .
--- NOTE | 2018-07-17 13:09 | OT.IP.EVAL ---
Current Diagnoses Foot drop, left foot (07/16/18) Spinal stenosis, lumbar region without neurogenic claudication (07/16/18) Postlaminectomy syndrome, not elsewhere classified (07/16/18) Surgery Performed Operation Date: 07/16/18 07:45 Actual Procedures p L4-5, L5-S1 TLIF w/Posterior Instru. - Albertina Martin MD Past Medical History (Last Updated 07/14/18 @ 13:36 by Faye Elizabeth, RN) ASCVD (arteriosclerotic cardiovascular disease) (Acute) Atrial fibrillation/flutter (Acute) CHF (congestive heart failure) (Acute) DDD (degenerative disc disease) (Acute) HTN (hypertension) (Acute) Hyperlipidemia (Acute) Murmur (Acute) Palpitations (Acute) Spinal stenosis (Acute) Type 2 diabetes mellitus (Acute) Surgical History (Last Updated 07/14/18 @ 12:42 by Faye Elizabeth RN) History of arthroscopy of both knees (Acute) History of arthroscopy of both shoulders (Acute) S/P CABG x 3 (Acute ~2001) S/P lumbar microdiscectomy (Acute 05/19/16) Occupational Therapy Inpatient Evaluation/Re-Eval M1 PT/OT-IP Prior Functional Status Start: 07/16/18 17:12 Freq: NEEDED Status: Active Protocol: Document 07/16/18 15:31 AB (Rec: 07/16/18 17:26 AB [id number]) Medical Review Prior Functional Status Medical History Reviewed Yes Communication able to make needs known Mobility and Gait pt stated that he is independent with all mobilities and ambulation without AD Social History Household Members spouse Living Arrangements House Number of Floors (Floors) Two Floors Number of Stairs To Enter/Railing? pt stays on main level of the house; has 2 steps to enter without rails Home Environment High Toilet Tub/Shower Employment Status Retired Additional Social History Comment stated that they don't have a FWW but they may have access to a SPC; has a hand held shower but is not installed yet M1 PT/OT-IP Prior Functional Status Start: 07/17/18 12:57 Freq: NEEDED Status: Active Protocol: Document 07/17/18 10:45 [facility] (Rec: 07/17/18 13:08 [facility] [id number]) Medical Review Prior Functional Status Medical History Reviewed Yes Diet/Fluid Consistency Regular Thin Liquids Communication able to make needs known Mobility and Gait pt stated that he is independent with all mobilities and ambulation without AD Social History Household Members spouse Living Arrangements House Number of Floors (Floors) Two Floors Number of Stairs To Enter/Railing? pt stays on main level of the house; has 2 steps to enter without rails Home Environment High Toilet Tub/Shower Employment Status Retired Additional Social History Comment stated that they don't have a FWW but they may have access to a SPC; has a hand held shower but is not installed yet M2 OT-IP Current Condition Start: 07/17/18 12:57 Freq: Status: Active Protocol: Document 07/17/18 10:45 [facility] (Rec: 07/17/18 13:08 [facility] [id number]) Occupational Therapy Current Condition Current Condition Evaluation Date 07/17/18 Treatment Diagnosis Lumbar spinal stenosis Diagnosis Onset Date 07/16/18 Post Operative Precautions Lumbar Precautions Log Roll No Twisting Limit Bending Lifting Restriction of 10 lbs Gait Belt above Incisional Area M3 OT- IP Subjective and Pain Start: 07/17/18 12:57 Freq: Status: Active Protocol: Document 07/17/18 10:45 [facility] (Rec: 07/17/18 13:08 [facility] [id number]) OT- Subjective Occupational Therapy Visit Type Type Initial Evaluation Visit Start Time 10:45 Visit Stop Time 11:30 Total Visit Minutes 45 Occupational Therapy Visit Comments Patient Comments Pt states wanting to go home and willing to take a shower prior to going home. OT Pain Assessment Pain When Pain Assessed At Rest Pain Present Pain Present Pain Reported Location low back Intensity 8 Scale Used Numeric (1 - 10) M4 OT- IP ADL's Start: 07/17/18 12:57 Freq: Status: Active Protocol: Document 07/17/18 10:45 [facility] (Rec: 07/17/18 13:08 [facility] [id number]) OT ADL-Dressing General Eval Upper Body Dressing Ability Standby Assistance Lower Body Dressing Ability Minimal Assistance Areas Needing Assistance Pants/Shorts Socks Comments OT Dressing Comments Pt trying to dequan socks/ underwear while standing and educated to sit for LB dressing needs, otherwise will need someone to assist for his balance while standing and to get clothing over his feet. Pt states barefooted at home, and recommended to wear shoes with heel versus flip flops he wore in to the hospital to prevent falls and for better fit and safety while up and moving. OT ADL-Toileting General Evaluation Toileting Ability Standby Assistance OT ADL-Bathing Bathing Type Bathing Type Shower General Evaluation Bathing Ability Minimal Assistance Areas Needing Assistance Wash/Dry Back Comments OT Bathing Comments Pt able to stand for the shower and use of grab bars. Pt has walk in shower and tub/ shower at home. Pt states feels that he will be okay without use of shower chair at home.In addition to assist. M5 OT- IP IADL's Start: 07/17/18 12:57 Freq: Status: Active Protocol: Document 07/17/18 10:45 [facility] (Rec: 07/17/18 13:08 [facility] [id number]) OT-Instrumental Activities of Daily Living Meal Preparation Meal Preparation Comments Family to assist. Structural Steel Ironworker Structural Steel Ironworker Comments Family to assist. M7 OT- IP Mobility and Balance Start: 07/17/18 12:57 Freq: Status: Active Protocol: Document 07/17/18 10:45 [facility] (Rec: 07/17/18 13:08 [facility] [id number]) OT- Bed Mobility Assessment Rolling Type of Rolling Roll to Right Level of Assistance Standby Assistance Bedrails Supine to Sit Supine to Sit Assist Standby Assistance Sit to Supine Sit to Supine Assist Standby Assistance Scooting Scooting to Edge of Bed Standby Assistance OT-Transfer Assessment Sit to and From Stand Sit to and from Stand Standby Assistance Transfers Transfer Ability Standby Assistance Technique Transfer Destination Bed Shower Stall Transfer Technique Stand Step Pivot Devices Transfer Assistive Devices Gait Belt Front Wheeled Walker Comments Mobility Comments Pt a bit impulsive and vc to slow down. OT- Balance Assessment Sitting Balance and Reactions Static Sitting Balance Ability Normal Dynamic Sitting Balance Ability Normal Standing Balance and Reactions Static Standing Balance Ability Normal Dynamic Standing Balance Ability Good M8 OT- IP Objective Assessments Start: 07/17/18 12:57 Freq: Status: Active Protocol: Document 07/17/18 10:45 [facility] (Rec: 07/17/18 13:08 [facility] [id number]) OT Gross Range of Motion Upper Extremity Range of Motion Assessment Within Functional Limits M9 OT- IP Assessment and Plan Start: 07/17/18 12:57 Freq: Status: Active Protocol: Document 07/17/18 10:45 [facility] (Rec: 07/17/18 13:08 [facility] [id number]) OT Summary Assessment and Plan Potential Rehabilitation Potential Good Analytic Complexity at Evaluation Low Summary OT Impairments Pain Balance Functional Cognition Progress Towards Goals Progressing Toward Goals Assessment Summary Pt low complexity and has good family support at home. Pt mainly needing cues to follow back precautions as pt tends to move fast. Pt suggested AED for LB dressing and shower needs, but pt states does not feel needs anything or that to assist. Goals Patient/Caregiver Education Goal Demonstrate Post-Op Precautions Caregiver Independent Assisting Patient Days to Meet Goals 1 Frequency of Treatment Frequency Of Treatment Once a Day Treatment Plan OT Treatment Plan Patient/Family Education Discharge Planning Discharge Recommendations OT Discharge Recommendations Home with Assistance Home Equipment Needs Shower chair, director workforce management
== END 2018-07-17 12:30 | disposition home or self-care (01) | DRG 455 ==
PROVIDERS: Admitting Provider Orthopaedic Surgery Orthopaedic Surgery of the Spine; PCP Family Medicine; Visit Provider Orthopaedic Surgery Orthopaedic Surgery of the Spine
PROC: 0SG00AJ Fusion of Lumbar Vertebral Joint with Interbody Fusion Device, Posterior Approach, Anterior Column, Open Approach (ICD-10-PCS; principal; 2018-07-16 07:45)
DX: M48.061 Spinal stenosis, lumbar region without neurogenic claudication (principal); M21.372 Foot drop, left foot; M96.1 Postlaminectomy syndrome, not elsewhere classified; M47.26 Other spondylosis with radiculopathy, lumbar region
CPT/HCPCS: 36415; 72100; 76001; 82962; 85014; 85018; 97116; 97162; 97165; 97530; 97535; C1776; C9290; J0131; J0330; J0690; J1100; J1170; J2060; J2250; J2405; J3010

== ENCOUNTER → 2020-02-12 09:40 | Outpatient (CLI) | payer MEDICARE, SELFPAY ==
[2018-07-16 13:16] VITALS: BMI 30.5
[2020-02-13 13:59] LABS: COVID19 Sendout Not Detected (Not Detect)
== END ==
PROVIDERS: PCP Family Medicine; Visit Provider Physician Assistant
DX: Z01.812 Encounter for preprocedural laboratory examination (principal)
CPT/HCPCS: 87635

== ENCOUNTER 2020-02-15 06:23 | Inpatient (IN) | payer MEDICARE, SELFPAY ==
[2018-07-16 13:16] VITALS: BMI 30.5
[2020-02-09 12:42] VITALS: BMI 30.5
[2020-02-15] VITALS (22 sets, daily range): BP systolic 110–152; BP diastolic 49–79; PULSE 52–69; RESP 10–18; TEMP 35.7–36.7; O2SAT 82–99; BMI 31.1
--- NOTE | 2020-02-15 | DI.RAD.S_ITS ---
PROCEDURE: XR LUMBAR SPINE 2-3V INDICATIONS: L3-4 TLIF TECHNIQUE: 2 views of the lumbar spine were acquired. COMPARISON: [facility], MR, MR LUMBAR SPINE WITHOUT CONTRAST, 12/04/2015, 11:10. [facility], CR, L-SPINE 2-3 VIEWS, 05/19/2016, 16:15. [facility], CR, XR LUMBAR SPINE 2-3V, 07/16/2018, 8:25. FINDINGS: 2 intraoperative fluoroscopy images demonstrated discectomy at L3-L4. There is posterior fusion from L3-S1. Part diskectomy at L 4-L5 and L5-S1. IMPRESSION: Discectomy and posterior fusion at L3-S1. Dictated by: Mike Poole M.D. on 02/15/2020 at 16:08 Approved by: Mike Poole M.D. on 02/15/2020 at 16:28
[2020-02-15] MEDS: LACTATED RINGERS 1,000 ML 42 ML IV ×2 (07:39→10:15)
--- NOTE | 2020-02-15 07:46 | PM.PREOP ---
Pre-operative Note COVID-19 COVID-19 status: Negative Result date/Date tested (Pos, Neg/Pending): 02/13/20 Interval Note History & Physical reviewed/Exam performed by Physician: Yes Changes to H&P: No
[2020-02-15] MEDS: CEFAZOLIN 2 GM/100 ML FROZ.PIGGY IV ×2 (07:48→16:12)
[2020-02-15] MEDS: BUPIVACAINE 0.25% W/ EPI 30 ML VIAL INJ (08:41)
[2020-02-15] MEDS: BUPIVACAINE LIPOSOME 266 MG/20 ML VIAL INJ (08:41)
--- NOTE | 2020-02-15 11:31 | P.OP_ITS ---
Operative Date/Time/Diagnoses Date of procedure: 02/15/20 Time of procedure: 08:07 Pre-op diagnosis: 1. L3-4 spinal stenosis 2. Hx of L4-S1 fusion with hardware loosening 3. Spinal stenosis L3-4, L4-5, L5-S1 Post-op diagnosis: same Procedure & Clinicians Procedure: 1. L3-4 posterolateral and posterior interbody fusion 2. L3-4 posterior interbody cage placement 3. L4-5, L5-S1 posterior segmental instrumentation removal 4. L4-5, L5-S1 revision laminectomy with exploration of fusion 5. L3-4, L4-5, L5-S1 posterior segmental instrumentation with pedicle screw placement 6. L5-S1 posterolatearl fusion 7. [place] of bone marrow from iliac crest through a separate incision 8. Utilization of microsurgical technique and operating microscope Same procedure as scheduled: Yes Indications: Patient has been having chronic back pain and worsening lumbar radiculopathy. Patient had history of lumbar fusion and has been doing well until the last 6 months. Patient was found have adjacent level disease at L3-4 level. Patient failed multiple conservative management with worsening pain weakness and numbness in her lower extremity. Patient has been having difficulty performing activity of daily living. After discussing risks benefits of treatment options, patient elected proceed with surgery. Surgeon: Albertina Martin Traffic Incident Management Manager: Mai Wang'Brien Click Yes if Unassisted: No Anesthesia Type: General Operative Notes Closure Type: primary Specimen(s): none sent Prosthetic devices, grafts, tissues, transplants, or devices: Globus revolve screw, Rise cages Applied: catheter Estimated Blood Loss (mL): 150 Blood products transfused: none Procedure in detail: Patient was seen in the preoperative area. Risks and benefits of the surgery was discussed with the patient. Informed consent was obtained from the patient and placed in the chart. Surgical site was marked. Patient was taken to the operative room. General anesthesia was administered. Prophylactic antibiotic was given to the patient less than 30 min before the incision was made. Patient was placed into a prone position on the Russell table. Patient's back was then prepped and draped in the sterile fashion. Time- out was performed at this time. Using patient's previous scar incision was made over the L3-S1 interval on the right side. Fascia was incised in line with skin incision. Patient's previously placed hardware over the L4-S1 level was identified by dissecting down to the level the hardware using a Bovie and a Agarwal. The locking caps which was removed using globus screwdriver. The locking fernie was then removed from the tulips of the pedicle screws using a Angelique. The pedicle screws were then removed using the screwdriver. The screws were found to have good purchase except the left S1 scew, which was loose. The Globus and MARS retractors was then placed into the wound and docked onto the L3 lamina using C-arm guidance. Using microsurgical technique and operating microscope a laminectomy facetectomy was performed by removing the L3 lamina and the L3-4 facet. The disc space at L3-4 level was identified next. And a total diskectomy was performed at L3-4 level. The endplates were decorticated using a rasp and shaver. Patient was found have severe central and neuroforaminal stenosis at L3-4 level which was fully decompressed after the decompression was completed. The total diskectomy and decortication was performed at L3-4 level in order to to accomplish a L3-4 fusion. The local bone from the laminectomy and facetectomy was saved for local bone grafting. After the total diskectomy and decortication was completed, Trifecta bone graft material was combined with local bone that was harvested earlier. At this time, a separate skin is incision was made over the iliac crest. A Jamshidi needle was inserted into the iliac crest through a separate skin incision. 5 cc of bone marrow aspiration was obtained through the separate skin incision using a Jamshidi needle from the iliac crest. The bone marrow aspiration was combined with local bone and the Trifecta bone grafting material. The bone grafting material was placed into the L3-4 interbody space along with a expandable cage. The cage was expanded to its maximum height using the torque limiting screwdriver. At this time a mirror image incision was made on the left side. The fascia was incised in line with the skin incision. Patient's previously placed hardware on the left side was then removed in the same fashion as it was on the right side. The hardware was also found to have good purchase. The fusion mass on the left side was exposed by performing a left-sided hemilaminectomy at L4-5 L5-S1 level. The hemilaminectomy was performed using the Kerrison rongeur to undercut the lamina as well removing additional epidural scar tissue for purpose of decompressing the epidural space. The fusion mass was explored and was found have visible motion indicating pseudoarthrosis at L5-S1 level. The fusion at L4-5 level was found to be solid. Globus MARS retractor was inserted and docked onto the L3-4 and L5-S1 posterolateral gutter. Using the power drill, posterior-lateral decortication was performed at L3-4 and L5-S1 level until bleeding cortical bone was identified. The remaining bone grafting material was placed into the L3-4 and L5-S1 posterior lateral gutter he order to accomplish posterolateral fusion at the L3-4 and L5-S1 level. Using the double C-arm technique, pedicle screws were placed into the L3-L4 L5 and S1 pedicles bilaterally. This was done by placing the Jamshidi needle into the pedicles, then placing the guidewires over the Jamshidi needle, and finally placing the cannulated screws over the guidewires bilaterally. After the pedicle screws were placed, 2 titanium rods was locked into the heads of the pedicle screws using locking caps and torque limiting screwdriver. After all the hardware was placed, and confirmed with AP and lateral C-arm imaging, the wound was then irrigated with sterile normal saline and packed with Ray-Akash gauze for 3 min to accomplish hemostasis. After the gauze was removed the deep fascia was closed with #1 Vicryl suture. The subcutaneous layer was closed with 2-0 Vicryl. The skin was closed with skin bill. Patient tolerated the procedure well. There were no complications. Complications: none Post-operative Condition: stable Disposition: PACU Plan for aftercare: Admit to inpatient hospital
[2020-02-15] MEDS: INSULIN ASPART 100 UNIT/ML INSULN PEN SUBCUT ×2 (12:08→17:06)
[2020-02-15] MEDS: ONDANSETRON 4 MG/2 ML INJ IV (12:23)
[2020-02-15] MEDS: HYDROMORPHONE 2 MG INJ IV ×2 (12:23→12:40)
--- NOTE | 2020-02-15 13:15 | SUR.PHASEI ---
Bedside report given to ARLENE Meraz
[2020-02-15] MEDS: ACETAMINOPHEN 325 MG TABLET 650 MG PO ×2 (14:16→20:30)
[2020-02-15] MEDS: OXYCODONE IR 10 MG TABLET PO ×3 (14:17→21:11)
[2020-02-15] MEDS: SODIUM CHLORIDE 0.9% 1,000 ML 100 ML IV (14:22)
--- NOTE | 2020-02-15 14:40 | PC.NURSE ---
Patient admitted to the floor a bit after 1300. He has a bulky dressing to his lower back that is cdi. Given 10mg of oxycodone and 2 tylenol for complaints of discomfort, 8/10 pain. He is pleasant, patient is diabetic and bs taken down in the PACU, it was 210. Patient denies any numbness or tingling and is drinking water well. He denies nausea and CMS wnl, ppx2.
[2020-02-15 14:44] LABS: Bacteria Urine None Seen
[2020-02-15 14:46] LABS: Appearance Urine UA CLEAR; Bilirubin Urine UA NEGATIVE (NEGATIVE); Color Urine UA YELLOW; Glucose Urine UA NEGATIVE (Negative); Ketones Urine UA NEGATIVE (NEGATIVE); Leukocyte Esterase Urine UA NEGATIVE (NEGATIVE); Nitrite Urine UA NEGATIVE (Negative); Occult Blood Urine UA TRACE-INTACT (Negative); Protein Urine UA NEGATIVE (Negative); Urobilinogen Urine UA 0.2 E.U./dL (0.2); pH Urine UA 5.5 (4.5-8.0)
[2020-02-15 15:00] LABS: Mucus Urine 1+ (Negative); RBC Urine 0-1/HPF (0-5/HPF); Squamous Epithelial Cell Urine 0-1 /HPF (0-5/HPF); WBC Urine 0-1/HPF (0-5/HPF)
[2020-02-15 15:01] LABS: Culture Indicated Urine Cult Not Indicated; Hyaline Casts Urine 1-5/LPF
[2020-02-15] MEDS: HYDROMORPHONE 0.5 MG INJ IV ×3 (16:11→21:53)
--- NOTE | 2020-02-15 17:18 | PT.IIE ---
Surgery Performed Operation Date: 02/15/20 07:45 Actual Procedures p L4-S1 HWR, L3-4 TLIF, L3-S1 PSF w. Jabari - Albertina Martin MD Surgical History (Last Updated 02/09/20 @ 15:24 by Faye Elizabeth, RN) H/O cardiac radiofrequency ablation (Acute ~2010) History of arthroscopy of both knees (Acute) History of arthroscopy of both shoulders (Acute) History of colonoscopy (Acute) History of lumbar fusion (Acute 07/16/18) Hx of heart artery stent (Acute ~10/2001) S/P CABG x 3 (Acute 06/30/02) S/P lumbar microdiscectomy (Acute 05/19/16) Medical History (Last Updated 02/09/20 @ 15:24 by Faye Elizabeth RN) ASCVD (arteriosclerotic cardiovascular disease) (Acute) Atrial fibrillation/flutter (Acute) CAD (coronary artery disease) (Acute) CHF (congestive heart failure) (Acute) DDD (degenerative disc disease) (Acute) HTN (hypertension) (Acute) Hyperlipidemia (Acute) Kidney stones (Acute) Murmur (Acute) Myocardial infarction (Acute 2001) Palpitations (Acute) Sciatica (Acute) Spinal stenosis (Acute) Type 2 diabetes mellitus (Acute) Physical Therapy Inpatient Evaluation/Re-Eval M1 PT/OT-IP Prior Functional Status Start: 02/15/20 15:11 Freq: NEEDED Status: Active Protocol: Document 02/15/20 16:59 (Rec: 02/15/20 17:18 [email or web address]) Medical Review Prior Functional Status Medical History Reviewed Yes Diet/Fluid Consistency Regular Communication independent Mobility and Gait independent with all mobility without AD. Able to flor short distance of walking/ sitting ~ 1 hr. Pain for bend over activities. Activities of Daily Living and IADL's independent for all ADLs and IADLs without AD Social History Household Members spouse,children Living Arrangements House Number of Floors (Floors) One Floor Number of Stairs To Enter/Railing? 1 platform YSABEL without rail Home Environment High Toilet,Walk in Shower Home Equipment Front Wheel Walker,Shower Seat with Backrest Employment Status Retired Additional Social History Comment Pt lives with her spouse and older dtr in [place] who will be able to assist as needed. Pt had his first back sx in 2016 and 2nd one in May. He was able to d/c home a day after for both surgeries. M2 PT-IP Current Condition Start: 02/15/20 15:11 Freq: NEEDED Status: Active Protocol: Document 02/15/20 16:59 (Rec: 02/15/20 17:18 [email or web address]) Physical Therapy Current Condition Current Condition Evaluation Date 02/15/20 Treatment Diagnosis L4S1 HWR, L3-L4 TLIF, L3-S1 PSF, difficulty in walking Onset Date 02/15/20 Precautions Lumbar Precautions Log Roll,No Twisting,Limit Bending,Lifting Restriction of 10 lbs,Gait Belt above Incisional Area Weight Bearing Status Weight Bearing Status Full Weight Bearing M3 PT-IP Subjective Start: 02/15/20 15:11 Freq: NEEDED Status: Active Protocol: Document 02/15/20 16:59 HH (Rec: 02/15/20 17:18 [email or web address]) Subjective Physical Therapy Visit Type Type Initial Evaluation Visit Start Time 15:18 Visit Stop Time 15:38 Total Visit Minutes 20 Number of GRADE FOREMAN Visits 0 Physical Therapy Visit Comments Patient Comments Im feeling okay. My pain is there Patient Goals To improve his mobility so he can return home with . Therapy Pain Assessment Pain When Pain Assessed During Mobility Pain Present Pain Present Pain Reported Location back Scale Used Laura-Louise (Faces) Description Acute Pain Behaviors Facial Grimacing,Guarding Pain Management Techniques Timing of Activity with Medications M4 PT-IP Mobility and Gait Start: 02/15/20 15:11 Freq: NEEDED Status: Active Protocol: Document 02/15/20 16:59 (Rec: 02/15/20 17:18 [email or web address]) PT-Bed Mobility Assessment Rolling Type of Rolling Log Rolling,Roll to Right Level of Assist Contact Guard Assistance Supine to Sit Supine to Sit Contact Guard Assistance, Bedrails Scooting Scooting to Edge of Bed Contact Guard Assistance PT-Transfer Assessment Sit to and From Stand Sit to and from Stand Minimal Assistance,Use of Upper Extremities Equipment Transfer Assistive Device Gait Belt,Front Wheeled Walker Orthotic/Prosthetic Devices or Brace: No Transfers Transfer Destination Bed,Chair Transfer Technique Stand Step Pivot Transfer Ability Level of Assist Contact Guard Assistance,Use of Upper Extremities Comments Mobility Comments Pt was in eleavted HOB who also had pain meds 20 mins ago upon PT arrival. BP at 132 / 64. Pt had multiple episodes of L quad muscle spasms at rest and stated thats his baseline. He then agreed to mobilize with PT. Pt was able to recall all 3/3 post op precautions. He completed log roll to R with CGA but took approx. 20 secs, followed by SL to sit by using bed rails to push off for another approx 30 secs. Pt calling out for pain and held his breath. Educated to breath deeply to promote relaxation in seated position. Pt was able to sit w /o support intermittently. He then stood up with FWW with min A and cues for hand placements on bed and walker to push off. He was able to amb after around the bed to bedside chair with CGA but step to pattern. He was well aware of safety precautions and able to transfer himself to chair slowly with proper hand placements. Pt sat in chair comfortably with sufficient pillows for back and hip support. Call light placed within reach. BP at 139 /68. Gait Assessment Gait Gait Assistance Required: Contact Guard Assist Distance (Feet) 10 Able to Maintain Weight Bearing Status Yes During Gait Assistive Devices Assistive Device Gait Belt,Front Wheeled Walker Orthotic/Prosthetic Devices or Brace: No Gait Deviations General Gait Pattern Antalgic,Decreased Stride Length,Decreased Feet Clearance,Step-to Gait Factors Limiting Gait Function Factors Limiting Gait Function Decreased Activity Tolerance, Decreased Strength,Limited Range of Motion,Pain,Poor Balance,Poor Safety Awareness Comments Gait Comments see mobility comments. Stair Climbing Assessment Comments Stair Climbing Comments did not assess PT-Balance Assessment Sitting Balance and Reactions Static Sitting Balance Ability Normal Dynamic Sitting Balance Ability Normal Standing Balance and Reactions Static Standing Balance Ability Good Dynamic Standing Balance Ability Fair Device Used FWW M5 PT-IP Objective Assessments Start: 02/15/20 15:11 Freq: NEEDED Status: Active Protocol: Document 02/15/20 16:59 HH (Rec: 02/15/20 17:18 [email or web address]) Orientation Orientation/Cognition Level of Alertness Alert Orientation Name,Age,Birthday,Month,Date, Year,Day of Week,Place, Situation Language Function Ability No Deficits Noted Safety Awareness Understands Safety Issues Memory Description No Deficits Noted Gross Range of Motion Upper Extremity ROM Assessment Within Functional Limits Lower Extremity ROM Assessment Within Functional Limits Strength Upper Extremity Strength Assessment Within Functional Limits Lower Extremity Strength Assessment Bilaterally Impaired Hip 3+/5 Knee 4-/5 Ankle 5/5 Coordination Assessment Gross Coordination Gross Coordination WNL Sensation Assessment Sensation Gross Sensation WNL Muscle Tone Muscle Tone WNL Yes M6 PT-IP Treatment Start: 02/15/20 15:11 Freq: NEEDED Status: Active Protocol: Document 02/15/20 16:59 HH (Rec: 02/15/20 17:18 [email or web address]) Physical Therapy Treatment Exercises Exercises Ankle Pumps,Gluteal Sets,Quad Sets,Heel Slides Education Education Provided Precautions,Weight Bearing Status,Post-Op Packet,Safety M7 PT-IP Assessment and Plan Start: 02/15/20 15:11 Freq: NEEDED Status: Active Protocol: Document 02/15/20 16:59 HH (Rec: 02/15/20 17:18 HH [email or web address]) PT Summary Assessment and Plan Potential Rehabilitation Potential Excellent Status of Condition at Evaluation Stable Summary Impairments Pain,ROM,Strength,Balance,Bed Mobility,Transfers,Gait, Activity Tolerance Assessment Summary This is a low complexity evaluation for this 64 yo male s/p POD0 L4S1 HWR, L3-L4 TLIF , L3-S1 PSF. This is pt's 3rd back surgery and he is well aware of post op precautions during assessment. Pt did fairly well but needed time for bed mobility and transfer d/t pain. He overall needed CGA / min A with FWW but was very steady and safe. Expect pt to be d/c home with family support once he is medically stable. Goals Bed Mobility Goal Standby Assistance Transfer Goal Standby Assistance,Front Wheeled Walker Gait Goal Standby Assistance,Front Wheel Walker Gait Distance 150 Other Goals complete 1 platform step with FWW w/o rail, Days to Meet Goals 3 Frequency of Treatment Frequency Of Treatment Twice a Day Treatment Plan Physical Therapy Treatment Plan Bed Mobility Training,Transfer Training,Gait Training, Therapeutic Exercise,Balance Retraining,Post Op Education, Discharge Planning,Hot or Cold Pack,Neuromuscular Re-ed Other Recommendations and Next Treatment log roll , bed mob Focus gait training, platform step climbing Recommendations To Nursing Amount of Assist Needed 1 Person Assist Discharge Recommendations PT Discharge Recommendations Home with Assistance Transportation Needs at Discharge Private Vehicle
--- NOTE | 2020-02-15 18:21 | PC.NURSE ---
Addendum entered by Michelle Hillman R.N. 02/15/20 22:34: Spasms to left leg continue. Pt reports baseline spasms, but more pronounced s/p surgery. Declines offer for warm blanket to left LE, have tried ice to left hip/groin. Now scd's off to monitor for relief of spasms to LLE. Valium and meds as per emar. Declines assistance with position change. Addendum entered by Michelle Hillman R.N. 02/15/20 20:10: Pt continues to experience spasms to left leg and these are visible. Call to Dr. Moise on-call provider and orders for valium received and entered. Pt requires assistance x 1 to transfer from chair to bed. BL calf scd's replaced. Brisk urinary output per montesinos catheter. Ice has been to pt's back and now placed to left hip/groin. Original Note: Pt up out of bed by P.T. to chair. Rates back incisional/surgical pain 7/10. Assisted back to bed with walker and two staff members and administered iv dilaudid with good results. Pt rates pain 3/10. Declines offer for ice to site. Coversite dressing to central lower back is dry and intact. Admits to full sensation to BL LE's. Admits to spasms to BL LE's greater to LLE which began several months ago per pt statement. These are observed while pt in bed. BL calf scd's in place. Denies nausea. Taking diet well. Montesinos to gravity.
[2020-02-15] MEDS: diazePAM 5 MG TABLET PO (20:27)
[2020-02-15] MEDS: carvediloL 25 MG TABLET 12.5 MG PO (20:27)
[2020-02-15] MEDS: SENNOSIDES 8.6 MG TABLET 17.2 MG PO (20:28)
[2020-02-15] MEDS: DOCUSATE 100 MG CAPSULE PO (20:29)
[2020-02-15] MEDS: ATORVASTATIN 20 MG TABLET PO (20:29)
[2020-02-15] MEDS: diazePAM 5 MG TABLET 10 MG PO (21:49)
[2020-02-16] VITALS (7 sets, daily range): BP systolic 110–128; BP diastolic 62–70; PULSE 60–74; RESP 14–18; TEMP 36.2–36.9; O2SAT 97–99
[2020-02-16] MEDS: CEFAZOLIN 2 GM/100 ML FROZ.PIGGY IV (00:05)
[2020-02-16] MEDS: OXYCODONE IR 10 MG TABLET PO ×8 (00:08→23:56)
[2020-02-16] MEDS: SODIUM CHLORIDE 0.9% 1,000 ML 100 ML IV (00:18)
--- NOTE | 2020-02-16 00:24 | PC.NURSE ---
Addendum entered by Tatianna Aguilera R.N. 02/16/20 06:10: Slept for couple hours but now awake and states pain is again 6/10; medicated with Oxycodone but declined Valium although still having spasms in left leg. Addendum entered by Tatianna Aguilera R.N. 02/16/20 03:33: Pain still at 6/10 so medicated with IV Dilaudid Addendum entered by Tatianna Aguilera R.N. 02/16/20 03:04: Pain remains constant at 7/10 but still declines to have MD contacted; medicated with Oxycodone. Addendum entered by Tatianna Aguilera R.N. 02/16/20 02:03: Patient states pain still high and mostly unchanged; medicated with Tylenol + Valium. Declines to have MD contacted for additional pain meds. Addendum entered by Tatianna Aguilera R.N. 02/16/20 01:04: Pain improved but still at 6/10 so medicated with IV Dilaudid Original Note: Patient is alert and oriented. Breath sounds CTA with RA sat of 98%. HRR. Denies nausea. BT present but denies flatus as yet. Indwelling catheter is patent; urine is clear, dark, yellow. Dressing to back is CDI. Moving self in bed. Up with walker and 1 assist. Currently stating pain is 7/10 (burning, sharp, stabbing) so medicated with Oxycodone and ice pack applied after walking around room which he states helps the spasms he is having in left leg. Wearing bilateral calf SCD's. Fall risk score is high and bed alarm is activated.
[2020-02-16] MEDS: HYDROMORPHONE 0.5 MG INJ IV ×5 (01:02→22:53)
[2020-02-16] MEDS: ACETAMINOPHEN 325 MG TABLET 650 MG PO ×3 (02:00→22:00)
[2020-02-16] MEDS: diazePAM 5 MG TABLET 10 MG PO ×2 (02:00→21:59)
[2020-02-16 05:39] LABS: Hematocrit 26.3 % (41-53); Hemoglobin 8.8 g/dL (13.5-17.5)
--- NOTE | 2020-02-16 07:58 | PM.PN.1 ---
Exam Vital Signs (past 8 hours): - 02/16/20 03:00 Temperature 97.7 F Pulse Rate 64 Respiratory Rate 18 Blood Pressure 128/69 Pulse Oximetry 97 Oxygen Delivery Method Room Air Oxygen Flow Rate 0 Objective Labs Result Diagrams: 02/16/20 05:15 Labs: Laboratory Results - last 24 hr 02/15/20 02/16/20 13:15 05:15 Hgb 8.8 L Hct 26.3 L Urine Color Yellow Urine Appearance Clear Urine pH 5.5 Ur Specific [place] 1.020 Urine Protein Negative Urine Glucose (UA) Negative Urine Ketones Negative Urine Occult Blood Trace-intact Urine Nitrate Negative Urine Bilirubin Negative Urine Urobilinogen 0.2 Ur Leukocyte Esterase Negative Urine RBC 0-1/hpf Urine WBC 0-1/hpf Ur Squamous Epith Cells 0-1 /hpf Other Crystals 2+ amorphous Urine Bacteria None seen Hyaline Casts 1-5/lpf Urine Mucus 1+ H Ur Culture Indicated? Cult not indicated Assessment & Plan Assessment & Plan narrative: POD#1 s/p revision lumbar fusion L3-S1. Pain level 5-7 almost all the time. Will add oxycontin 10 mg BID scheduled. Will re-assess and possible d/c tomorrow to home once cleared by PT/OT. Dressing clean dry. Neurovascularly intact. No S/S of DVT on exam. Quality VTE Deep Vein Thrombosis/Pulmonary Embolism Present on Admission: No
[2020-02-16] MEDS: DOCUSATE 100 MG CAPSULE PO ×2 (08:30→20:02)
[2020-02-16] MEDS: METFORMIN XR 500 MG TABLET PO (08:30)
[2020-02-16] MEDS: INSULIN ASPART 100 UNIT/ML INSULN PEN SUBCUT ×2 (08:31→17:15)
[2020-02-16] MEDS: carvediloL 25 MG TABLET 12.5 MG PO ×2 (08:38→20:04)
[2020-02-16] MEDS: OXYCODONE ER 10 MG TAB PO ×2 (08:38→20:03)
[2020-02-16] MEDS: diazePAM 5 MG TABLET PO ×3 (08:39→20:02)
--- NOTE | 2020-02-16 10:19 | CM.DANOTE ---
DCP: Case received, EMR reviewed and met with patient. Introduced self and role. Was able to obtain information from patient regarding his baseline activity level prior to surgery, and living situation. DCP assessment completed with information currently available. Patient is a 64 year old male who admitted yesterday morning to the care of the orthopedic team. PCP: Dr. Alaniz. Payer: confirmed: Medicare/[employer]. Patient came to the hospital for a surgical procedure. He had a lumbar fusion of L3-S1. Patient has had chronic back issues, and this is his third surgery. Met with patient. He was sitting up in bed, alert and oriented. He has worked with [employer] yesterday. He is independent at baseline. He resides in [place] with his , Shey, and his older daughter is home to assist as well. Patient is retired. He currently uses no DME supplies. P: DCP to continue to follow. Plan is for patient to go home when he is medically stable. Brie Lopez RN/Final Operations Technician
--- NOTE | 2020-02-16 11:59 | PT.IPTN ---
Surgery Performed Operation Date: 02/15/20 07:45 Actual Procedures p L4-S1 HWR, L3-4 TLIF, L3-S1 PSF w. Jabari - Albertina Martin MD Physical Therapy Treatment Note M2 PT-IP Current Condition Start: 02/15/20 15:11 Freq: NEEDED Status: Active Protocol: Document 02/15/20 16:59 HH (Rec: 02/15/20 17:18 HH [id number]) Physical Therapy Current Condition Current Condition Evaluation Date 02/15/20 Treatment Diagnosis L4S1 HWR, L3-L4 TLIF, L3-S1 PSF, difficulty in walking Onset Date 02/15/20 Precautions Lumbar Precautions Log Roll,No Twisting,Limit Bending,Lifting Restriction of 10 lbs,Gait Belt above Incisional Area Weight Bearing Status Weight Bearing Status Full Weight Bearing M3 PT-IP Subjective Start: 02/15/20 15:11 Freq: NEEDED Status: Active Protocol: Document 02/16/20 11:57 AW (Rec: 02/16/20 12:21 AW [email or web address]) Subjective Physical Therapy Visit Type Type Treatment Note Visit Start Time 10:35 Visit Stop Time 10:59 Total Visit Minutes 24 Physical Therapy Visit Comments Patient Comments Pt would like to get up for a walk Therapy Pain Assessment Pain When Pain Assessed During Mobility Pain Present Pain Present Pain Reported Location back Intensity 5 Pain Management Techniques Re-positioning,Timing of Activity with Medications M4 PT-IP Mobility and Gait Start: 02/15/20 15:11 Freq: NEEDED Status: Active Protocol: Document 02/16/20 11:57 AW (Rec: 02/16/20 12:21 AW [email or web address]) PT-Bed Mobility Assessment Rolling Type of Rolling Log Rolling,Roll to Left Level of Assist Standby Assistance Supine to Sit Supine to Sit Standby Assistance,Bedrails Scooting Scooting to Edge of Bed Contact Guard Assistance PT-Transfer Assessment Sit to and From Stand Sit to and from Stand Moderate Assistance,1 Person Assistance,Use of Upper Extremities Equipment Transfer Assistive Device Gait Belt,Front Wheeled Walker Orthotic/Prosthetic Devices or Brace: No Transfers Transfer Destination Chair Transfer Technique pt ambulated with FWW Transfer Ability Level of Assist Standby Assistance,Use of Upper Extremities Comments Mobility Comments Pt sitting up in bed reporting 5/10 pain when PT arrived. With HOB flat, pt completed log roll to his left side and SL to sit SBA with improved speed compared with yesterday. From the bed in its lowest position, he completed sit to stand using FWW mod A x 1 with max cues to straighten his knees for stability. Pt remained in squat position, struggling to straighten his knees but was able to attain terminal knee extension and to get his hands on the walker handles within 5 seconds. Pt then ambulated around the unit with FWW SBA 120'. He returned to the room and transferred to the chair SBA. He stood again from the chair mod A x 1 and completed stair training in the room. He transferred back to the chair [facility] and was positioned there with all needs in reach. Gait Assessment Gait Gait Assistance Required: Standby Assistance,1 Person Assist Distance (Feet) 120 Able to Maintain Weight Bearing Status Yes During Gait Assistive Devices Assistive Device Gait Belt,Front Wheeled Walker Orthotic/Prosthetic Devices or Brace: No Gait Deviations General Gait Pattern Antalgic,Decreased Stride Length,Decreased Feet Clearance,Step-to Gait Factors Limiting Gait Function Factors Limiting Gait Function Decreased Activity Tolerance, Decreased Strength,Limited Range of Motion,Pain,Poor Balance,Poor Safety Awareness Comments Gait Comments Pt was able to ambulate in the halls 120 feet with FWW SBA. Pt moves with good attention to spinal precautions. Stair Climbing Assessment Evaluation Level of Assist On Stairs Moderate Assistance,1 Person Assistance Devices Stair Climbing Assistive Devices Front Wheel Walker Technique/Endurance Stair Climbing Direction Ascend and Descend Stair Climbing Technique Step to Step Number of Steps Climbed 1 Stair Climbing Set # Repetitions (reps) 2 Comments Stair Climbing Comments Pt required max cues for sequencing and mod assist, leading with his right leg up and left leg down. PT-Balance Assessment Sitting Balance and Reactions Static Sitting Balance Ability Normal Dynamic Sitting Balance Ability Normal Standing Balance and Reactions Static Standing Balance Ability Good Dynamic Standing Balance Ability Fair Device Used FWW M5 PT-IP Objective Assessments Start: 02/15/20 15:11 Freq: NEEDED Status: Active Protocol: Document 02/15/20 16:59 (Rec: 02/15/20 17:18 [email or web address]) Orientation Orientation/Cognition Level of Alertness Alert Orientation Name,Age,Birthday,Month,Date, Year,Day of Week,Place, Situation Language Function Ability No Deficits Noted Safety Awareness Understands Safety Issues Memory Description No Deficits Noted Gross Range of Motion Upper Extremity ROM Assessment Within Functional Limits Lower Extremity ROM Assessment Within Functional Limits Strength Upper Extremity Strength Assessment Within Functional Limits Lower Extremity Strength Assessment Bilaterally Impaired Hip 3+/5 Knee 4-/5 Ankle 5/5 Coordination Assessment Gross Coordination Gross Coordination WNL Sensation Assessment Sensation Gross Sensation WNL Muscle Tone Muscle Tone WNL Yes M6 PT-IP Treatment Start: 02/15/20 15:11 Freq: NEEDED Status: Active Protocol: Document 02/16/20 11:57 AW (Rec: 02/16/20 12:21 AW [email or web address]) Physical Therapy Treatment Education Education Provided Precautions,Safety M7 PT-IP Assessment and Plan Start: 02/15/20 15:11 Freq: NEEDED Status: Active Protocol: Document 02/16/20 11:57 AW (Rec: 02/16/20 12:21 AW [email or web address]) PT Summary Assessment and Plan Summary Impairments Pain,ROM,Strength,Balance,Bed Mobility,Transfers,Gait, Activity Tolerance Progress Towards Goals Slow Progress due to Pain Assessment Summary Pt required mod assist x 1 for sit to stand with poor mechanics. Stairs also required mod assist x 1. Caregiver training with his should be conducted prior to discharge. Goals Bed Mobility Goal Standby Assistance Transfer Goal Standby Assistance,Front Wheeled Walker Gait Goal Standby Assistance,Front Wheel Walker Gait Distance 150 Other Goals complete 1 platform step with FWW w/o rail, Days to Meet Goals 2 Frequency of Treatment Frequency Of Treatment Twice a Day Treatment Plan Physical Therapy Treatment Plan Bed Mobility Training,Transfer Training,Gait Training, Therapeutic Exercise,Balance Retraining,Post Op Education, Discharge Planning,Hot or Cold Pack,Neuromuscular Re-ed Other Recommendations and Next Treatment log roll , bed mob Focus gait training, platform step climbing Recommendations To Nursing Amount of Assist Needed 1 Person Assist Discharge Recommendations PT Discharge Recommendations Home with Assistance Transportation Needs at Discharge Private Vehicle
--- NOTE | 2020-02-16 12:45 | PT.IPTN ---
Surgery Performed Operation Date: 02/15/20 07:45 Actual Procedures p L4-S1 HWR, L3-4 TLIF, L3-S1 PSF w. Jabari - Albertina Martin MD Physical Therapy Treatment Note M2 PT-IP Current Condition Start: 02/15/20 15:11 Freq: NEEDED Status: Active Protocol: Document 02/15/20 16:59 HH (Rec: 02/15/20 17:18 HH [email or web address]) Physical Therapy Current Condition Current Condition Evaluation Date 02/15/20 Treatment Diagnosis L4S1 HWR, L3-L4 TLIF, L3-S1 PSF, difficulty in walking Onset Date 02/15/20 Precautions Lumbar Precautions Log Roll,No Twisting,Limit Bending,Lifting Restriction of 10 lbs,Gait Belt above Incisional Area Weight Bearing Status Weight Bearing Status Full Weight Bearing M3 PT-IP Subjective Start: 02/15/20 15:11 Freq: NEEDED Status: Active Protocol: Document 02/16/20 12:20 KS (Rec: 02/16/20 13:06 KS [email or web address]) Subjective Physical Therapy Visit Type Type Treatment Note Visit Start Time 12:20 Visit Stop Time 12:45 Total Visit Minutes 25 Number of STRIP CATCHER Visits 1 Physical Therapy Visit Comments Patient Comments Pt agreeable to working w/ therapy. Therapy Pain Assessment Pain When Pain Assessed After Treatment Pain Present Pain Present Pain Reported Location back Intensity 7 Scale Used Numeric (0 - 10) Pain Behaviors Facial Grimacing,Guarding, Moaning Pain Management Techniques Re-positioning,Timing of Activity with Medications M4 PT-IP Mobility and Gait Start: 02/15/20 15:11 Freq: NEEDED Status: Active Protocol: Document 02/16/20 12:20 KS (Rec: 02/16/20 13:06 KS [id number]) PT-Bed Mobility Assessment Rolling Type of Rolling Log Rolling Level of Assist Standby Assistance Supine to Sit Supine to Sit Standby Assistance,Bedrails Sit to Supine Sit to Supine Contact Guard Assistance Scooting Scooting to Edge of Bed Contact Guard Assistance PT-Transfer Assessment Sit to and From Stand Sit to and from Stand Minimal Assistance,1 Person Assistance,Use of Upper Extremities Equipment Transfer Assistive Device Gait Belt,Front Wheeled Walker Orthotic/Prosthetic Devices or Brace: No Transfers Transfer Destination Chair,Wheelchair Transfer Technique pt ambulated with FWW Transfer Ability Level of Assist Standby Assistance,Contact Guard Assistance,Use of Upper Extremities Comments Mobility Comments Pt in bed upon arrival from therapy w/ HOB elevated. PT SBA for sup<>sit w/ HOB elevated and CGA for scooting to EOB. Min A for sit<>stand w / FWW. Pt then ambulated ~150 ft to stairs and ascended/ descended 1 platform step w/ FWW. Pt then ambulated ~50 ft back towards room before he required w/c transport back to room d/t high pain in back. Pt ambulated ~10 ft from w/c to bed. CGA for stand<>sit and logroll back into bed. Pt left in bed w/ all needs in reach and SCDs on. Gait Assessment Gait Gait Assistance Required: Standby Assistance,1 Person Assist Distance (Feet) 210 Able to Maintain Weight Bearing Status Yes During Gait Assistive Devices Assistive Device Gait Belt,Front Wheeled Walker Orthotic/Prosthetic Devices or Brace: No Gait Deviations General Gait Pattern Antalgic,Decreased Stride Length,Decreased Feet Clearance,Step-to Gait Factors Limiting Gait Function Factors Limiting Gait Function Decreased Activity Tolerance, Decreased Strength,Limited Range of Motion,Pain,Poor Balance,Poor Safety Awareness Comments Gait Comments Pt ambulated ~210 ft total w/ FWW and SBA w/c follow. Pt has decreased stride length and foot clearance d/t pain. Stair Climbing Assessment Evaluation Level of Assist On Stairs Moderate Assistance,1 Person Assistance Devices Stair Climbing Assistive Devices Front Wheel Walker Technique/Endurance Stair Climbing Direction Ascend and Descend Stair Climbing Technique Step to Step Stair Climbing Set # Repetitions (reps) 1 Comments Stair Climbing Comments Pt Mod A for ascend/descend platform step w/ FWW. Cues for sequencing and adherence to spinal precautions. PT-Balance Assessment Sitting Balance and Reactions Static Sitting Balance Ability Normal Dynamic Sitting Balance Ability Normal Standing Balance and Reactions Static Standing Balance Ability Good Dynamic Standing Balance Ability Fair Device Used FWW M5 PT-IP Objective Assessments Start: 02/15/20 15:11 Freq: NEEDED Status: Active Protocol: Document 02/15/20 16:59 (Rec: 02/15/20 17:18 [email or web address]) Orientation Orientation/Cognition Level of Alertness Alert Orientation Name,Age,Birthday,Month,Date, Year,Day of Week,Place, Situation Language Function Ability No Deficits Noted Safety Awareness Understands Safety Issues Memory Description No Deficits Noted Gross Range of Motion Upper Extremity ROM Assessment Within Functional Limits Lower Extremity ROM Assessment Within Functional Limits Strength Upper Extremity Strength Assessment Within Functional Limits Lower Extremity Strength Assessment Bilaterally Impaired Hip 3+/5 Knee 4-/5 Ankle 5/5 Coordination Assessment Gross Coordination Gross Coordination WNL Sensation Assessment Sensation Gross Sensation WNL Muscle Tone Muscle Tone WNL Yes M6 PT-IP Treatment Start: 02/15/20 15:11 Freq: NEEDED Status: Active Protocol: Document 02/16/20 12:20 KS (Rec: 02/16/20 13:06 KS [id number]) Physical Therapy Treatment Education Education Provided Precautions,Safety M7 PT-IP Assessment and Plan Start: 02/15/20 15:11 Freq: NEEDED Status: Active Protocol: Document 02/16/20 12:20 KS (Rec: 02/16/20 13:06 KS [id number]) PT Summary Assessment and Plan Summary Impairments Pain,ROM,Strength,Balance,Bed Mobility,Transfers,Gait, Activity Tolerance Progress Towards Goals Slow Progress due to Pain Assessment Summary Pt SBA for sup<>sit w/ HOB elevated, CGA for scooting to EOB and logroll into bed. Pt has good awareness of spinal precautions. Pt ambulated ~150 ft to stairs w/ FWW SBA w/c follow, then ascended/ descended 1 platform step w/ FWW Mod A and cues for sequencing, hip hinge. Pt ambulated ~50 ft back towards room before needed w/c for remainder of distance. Pt will benefit from continued LE strengthening and stair/ ambulation training to improve strength and tolerance for activity and decreased assist needed for stair completion. Will require caregiver training prior to d/c. Goals Bed Mobility Goal Standby Assistance Transfer Goal Standby Assistance,Front Wheeled Walker Gait Goal Standby Assistance,Front Wheel Walker Gait Distance 150 Other Goals complete 1 platform step with FWW w/o rail, Days to Meet Goals 2 Frequency of Treatment Frequency Of Treatment Twice a Day Treatment Plan Physical Therapy Treatment Plan Bed Mobility Training,Transfer Training,Gait Training, Therapeutic Exercise,Balance Retraining,Post Op Education, Discharge Planning,Hot or Cold Pack,Neuromuscular Re-ed Other Recommendations and Next Treatment log roll , bed mob Focus gait training, platform step climbing Recommendations To Nursing Amount of Assist Needed 1 Person Assist Discharge Recommendations PT Discharge Recommendations Home with Assistance Transportation Needs at Discharge Private Vehicle
--- NOTE | 2020-02-16 14:44 | OT.IP.EVAL ---
Surgery Performed Operation Date: 02/15/20 07:45 Actual Procedures p L4-S1 HWR, L3-4 TLIF, L3-S1 PSF w. Jabari - Albertina Martin MD Past Medical History (Last Updated 02/09/20 @ 15:24 by Faye Elizabeth, RN) ASCVD (arteriosclerotic cardiovascular disease) (Acute) Atrial fibrillation/flutter (Acute) CAD (coronary artery disease) (Acute) CHF (congestive heart failure) (Acute) DDD (degenerative disc disease) (Acute) HTN (hypertension) (Acute) Hyperlipidemia (Acute) Kidney stones (Acute) Murmur (Acute) Myocardial infarction (Acute 2001) Palpitations (Acute) Sciatica (Acute) Spinal stenosis (Acute) Type 2 diabetes mellitus (Acute) Surgical History (Last Updated 02/09/20 @ 15:24 by Faye Elizabeth RN) H/O cardiac radiofrequency ablation (Acute ~2010) History of arthroscopy of both knees (Acute) History of arthroscopy of both shoulders (Acute) History of colonoscopy (Acute) History of lumbar fusion (Acute 07/16/18) Hx of heart artery stent (Acute ~10/2001) 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 Able to flor short distance of walking/ sitting ~ 1 hr. Pain for bend over activities. Activities of Daily Living and IADL's independent for all ADLs and IADLs without AD Social History Household Members spouse,children Living Arrangements House Number of Floors (Floors) One Floor Number of Stairs To Enter/Railing? 1 platform YSABEL without rail Home Environment High Toilet,Walk in Shower Home Equipment Front Wheel Walker,Shower Seat with Backrest Employment Status Retired Additional Social History Comment Pt lives with her spouse and older dtr in [place] who will be able to assist as needed. Pt had his first back sx in 2016 and 2nd one in May. He was able to d/c home a day after for both surgeries. M2 OT-IP Current Condition Start: 02/16/20 14:26 Freq: Status: Active Protocol: Document 02/16/20 11:46 [facility] (Rec: 02/16/20 14:44 [facility] [id number]) Occupational Therapy Current Condition Current Condition Evaluation Date 02/16/20 Treatment Diagnosis Lumbar stenosis, s/p L4-S1 HWR , L3-L4 TLIF Diagnosis Onset Date 02/15/20 Post Operative Precautions Lumbar Precautions Log Roll,No Twisting,Limit Bending,Lifting Restriction of 10 lbs,Gait Belt above Incisional Area M3 OT- IP Subjective and Pain Start: 02/16/20 14:26 Freq: Status: Active Protocol: Document 02/16/20 11:46 [facility] (Rec: 02/16/20 14:44 [facility] [id number]) OT- Subjective Occupational Therapy Visit Type Type Initial Evaluation Visit Start Time 11:46 Visit Stop Time 12:05 Notes Pt also seen with for caregiver training in PM . [id number] and [id number] Occupational Therapy Visit Comments Patient Comments Pt agreed to do OT eval. Patient/Caregiver Goals To go home. OT Pain Assessment Pain When Pain Assessed During Mobility Pain Present Pain Present Pain Reported Location back Intensity 6 M4 OT- IP ADL's Start: 02/16/20 14:26 Freq: Status: Active Protocol: Document 02/16/20 11:46 [facility] (Rec: 02/16/20 14:44 [facility] [id number]) OT IZO-Cybi-Ebihhga General Evaluation Self-Feeding Ability Independent OT ADL-Grooming Comments OT Grooming Comments Pt able to stand with FWW for grooming needs. OT ADL-Oral Care General Eval Oral Care Ability Independent OT ADL-Dressing General Eval Lower Body Dressing Ability Standby Assistance Comments OT Dressing Comments Pt able to comfortable cross his legs over to do LB dressing equipment and not wanting any LB dressing equipment. Per last surgery pt also did not want any equipment needs and insisted that his would assist him if needed. OT ADL-Toileting Comments OT Toileting Comments Pt not having to go. Pt aware to stand to wipe for hygiene needs after toileting. OT ADL-Bathing Comments OT Bathing Comments Pt not wanting to shower at this time. M5 OT- IP IADL's Start: 02/16/20 14:26 Freq: Status: Active Protocol: Document 02/16/20 11:46 [facility] (Rec: 02/16/20 14:44 [facility] [id number]) OT-Instrumental Activities of Daily Living Home Safety Awareness Awareness of Need for Assistance at Home Good Awareness Ability to Problem Solve Emergency Able to Problem Solve Situations Home Safety Comments Pt states will be able to assist for needs. Medication Management Medication Management No Deficits Identified Money Management Money Management No Deficits Identified Meal Preparation Meal Preparation Caregiver Provides Assist Flight Operations Specialist Flight Operations Specialist Caregiver Provides Assist M6 OT- IP Functional Cognition Start: 02/16/20 14:26 Freq: Status: Active Protocol: Document 02/16/20 11:46 [facility] (Rec: 02/16/20 14:44 [facility] [id number]) Cognitive Factors Limiting Selfcare Function Cognitive Ability Level of Alertness Alert Patient Orientation Name,Place,Situation Attention Span Ability Capable of Focused Attention, Capable of Sustained Attention Ability to Follow Commands Able to Follow One Step Commands Memory Description No Deficits Noted Safety Awareness Underestimates Need for Assistance Cognitive Comments Cognitive Assessment Comments Pt appears intact for all cognitive needs. Per states pt is ,stubborn. Pt not open to use LB dressing equipment and states to assist for needs. OT- Vision and Hearing OT- Hearing Assessment OT- Hearing Assessment WFL OT- Vision Assessment Visual Acuity WFL M7 OT- IP Mobility and Balance Start: 02/16/20 14:26 Freq: Status: Active Protocol: Document 02/16/20 11:46 [facility] (Rec: 02/16/20 14:44 [facility] [id number]) OT- Bed Mobility Assessment Sit to Supine Sit to Supine Assist Contact Guard Assistance OT-Transfer Assessment Sit to and From Stand Sit to and from Stand Minimal Assistance,Moderate Assistance Transfers Transfer Ability Contact Guard Assistance Technique Transfer Destination Bed,Chair Transfer Technique Stand Step Pivot Devices Transfer Assistive Devices Gait Belt,Front Wheeled Walker Comments Mobility Comments Pt mainly having difficulty with sit to stand from lower surfaces and at times needing MODA x 1 to stand. Suggested may be beneficial to have RTS on the toilet. OT- Gait Assessment Comments Gait Ability Comments Once up pt is CGA/SBA with FWW . OT- Balance Assessment Sitting Balance and Reactions Static Sitting Balance Ability Normal Dynamic Sitting Balance Ability Normal Standing Balance and Reactions Static Standing Balance Ability Good M8 OT- IP Objective Assessments Start: 02/16/20 14:26 Freq: Status: Active Protocol: Document 02/16/20 11:46 [facility] (Rec: 02/16/20 14:44 [facility] [id number]) OT Gross Range of Motion Upper Extremity Range of Motion Assessment Within Functional Limits OT Strength Upper Extremity Strength Assessment Within Functional Limits OT-Muscle Tone Assessment Muscle Tone WNL Yes M9 OT- IP Assessment and Plan Start: 02/16/20 14:26 Freq: Status: Active Protocol: Document 02/16/20 11:46 [facility] (Rec: 02/16/20 14:44 [facility] [id number]) OT Summary Assessment and Plan Potential Rehabilitation Potential Good Analytic Complexity at Evaluation Low Summary OT Impairments Functional Mobility,Dressing, Toileting,Bathing,Toilet Transfers,Shower Transfers, Activity Tolerance Progress Towards Goals Progressing Toward Goals Assessment Summary Pt low complexity and has had prior back surgeries 2017 and 2018. Pt not wanting to have any more OT at this time as feels capable to be able to do all ADl needs with 's assistance. Spoke to pt's and she states feels comfortable and states good understanding to assist pt and states knows that he is , stubborn. Therefore discharge pt from OT services. Pt to continue to see PT for mobility needs. Goals Patient/Caregiver Education Goal Demonstrate Post-Op Precautions,Caregiver Independent Assisting Patient Days to Meet Goals 1 Discharge Recommendations OT Discharge Recommendations Home with Assistance Transportation Needs at Discharge Private Vehicle
--- NOTE | 2020-02-16 18:44 | PC.NURSE ---
Addendum entered by Michelle Hillman R.N. 02/16/20 23:32: Rates back pain 7/10 and unable to sleep. States has slept following initial dose dilaudid this evening shift approximately one hour. Spasms continue to LLE although periods where this is less noticeable. No change in neurovascular status this evening shift. Addendum entered by Michelle Hillman R.N. 02/16/20 21:30: Ambulatory in hallway with standby assistance. Up in recliner. Returned to bed and reports pain 3/10 to back. Original Note: Pt in bed and spouse is present in room. Pt c/o back/incisional pain 7/10 sharp in nature. Reports this has been level of pain all day. Discussed pain management options with pt and it is agreed upon to administer iv dilaudid for immediate relief. LLE continues to visibly spasm as pt reports has been occurring for the past three months. Pt admits to full sensation to BL LE's. Pedal pulses present with doppler BL. BL calf scd's replaced. Coversite dressing to central lower back is dry and intact. Pt denies nausea. Discussed options for bowel function and explained to pt and pt's spouse constipating effects of narcotics. Pt declines all offers except for senna. With support of LLE on pillow, spasms quiet and and calm. Pt now flat in bed attempting to rest. Bed alarm in place.
[2020-02-16] MEDS: ATORVASTATIN 20 MG TABLET PO (20:03)
[2020-02-16] MEDS: SENNOSIDES 8.6 MG TABLET 17.2 MG PO (20:03)
[2020-02-16] MEDS: SODIUM CHLORIDE 0.9% FLUSH 10 ML IV ×2 (20:05→22:54)
--- NOTE | 2020-02-17 00:02 | PC.NURSE ---
Addendum entered by Tatianna Aguilera R.N. 02/17/20 06:17: Catheter d'cd as is post op day 2 and mobilizing well. Able to sleep tonight and states pain remains at 5/10 but able to wait until next Oxycodone is due at 0645. Instructed in sx/prevention of UTI; verbalizes understanding. Addendum entered by Tatianna Aguilera R.N. 02/17/20 03:48: Has been able to sleep for past few hours but now states pain is 5/10; medicated with Oxycodone. Original Note: Patient is alert and oriented. Breath sounds with expiratory wheezing; RA sat 97%. HRR. Denies nausea. BT present and is passing flatus. Indwelling catheter patent; urine clear, dark, yellow. Dressing to back is CDI. Is able to move self in bed and gets out of bed with walker and 1 assist. Continues to have significant back pain although did get some relief from IV Dilaudid given at shift change. Currently states pain is 4/10 so medicated with Oxycodone. Continues to have left LE spasms but states they are just annoying. CMS is intact bilaterally. Wearing bilateral calf SCD's. Fall risk score is high and bed alarm is activated.
[2020-02-17] MEDS: OXYCODONE IR 10 MG TABLET PO ×3 (03:46→10:06)
[2020-02-17 04:00] VITALS: BP 128/76; PULSE 63; RESP 16; TEMP 36.2; O2SAT 98
[2020-02-17] MEDS: carvediloL 25 MG TABLET 12.5 MG PO (07:54)
[2020-02-17] MEDS: OXYCODONE ER 10 MG TAB PO (07:55)
[2020-02-17] MEDS: DOCUSATE 100 MG CAPSULE PO (07:55)
[2020-02-17] MEDS: INSULIN ASPART 100 UNIT/ML INSULN PEN SUBCUT (07:56)
[2020-02-17 08:00] VITALS: BP 135/75; PULSE 60; RESP 16; TEMP 36.6; O2SAT 96
--- NOTE | 2020-02-17 08:57 | PC.NURSE ---
Addendum entered by Yusra Lucas R.N. 02/17/20 10:14: Pt voided qs amount of urine post urinary catheter removal. Discharge summary packet reviewed with pt, Pt states has senna at home to prevent constipation. Medication list reviewed, no further vquestions. States is ready for discharge and pt's will be coming to pick him up around 1100. Pt states has all belongings. Addendum entered by Yusra Lucas R.N. 02/17/20 09:41: Lower back dressing removed per order. Bilateral incisions well approximated with bill intact, no active drainage, previous dressing had dry moderate amount of bloody drainage. Area cleansed wtih NS, pat dry. Right incision was left with medicated gauze over top from OR. 1 coversite dressing applied and pt tolerated well. Extra dressing given to pt. Original Note: Day Shift- Pt A&OX4, able to make his needs known using call light. OOB to recliner chair this AM with 1PA and pt using walker. Pt did have unsteady gait X2 while trying to get from sitting to standing position. Ice pack to lower back while sitting in chair. Lower back dressing clean and dry, plan to change today to coversite dressing per Jonnie Nesbitt, PAC at 0730. Denies numbness or tingling, no peripheral edema noted. Pt states has intermittent spasms to LLE more intense with lying than with sitting, none with ambulation. Rates lower back pain 5-6/10 aching, throbbing. Pain management plan discussed, PRN Oxycodone given at 0715. Pt has no urge to void at this time. Urinal within reach. Per Jonnie Nesbitt,PAC pt to start his home Denise duran, pt aware.
--- NOTE | 2020-02-17 10:28 | PT.IPTN ---
Surgery Performed Operation Date: 02/15/20 07:45 Actual Procedures p L4-S1 HWR, L3-4 TLIF, L3-S1 PSF w. Jabari - Albertina Martin MD Physical Therapy Treatment Note M2 PT-IP Current Condition Start: 02/15/20 15:11 Freq: NEEDED Status: Active Protocol: Document 02/15/20 16:59 HH (Rec: 02/15/20 17:18 [id number]) Physical Therapy Current Condition Current Condition Evaluation Date 02/15/20 Treatment Diagnosis L4S1 HWR, L3-L4 TLIF, L3-S1 PSF, difficulty in walking Onset Date 02/15/20 Precautions Lumbar Precautions Log Roll,No Twisting,Limit Bending,Lifting Restriction of 10 lbs,Gait Belt above Incisional Area Weight Bearing Status Weight Bearing Status Full Weight Bearing M3 PT-IP Subjective Start: 02/15/20 15:11 Freq: NEEDED Status: Active Protocol: Document 02/17/20 10:16 HH (Rec: 02/17/20 10:28 [id number]) Subjective Physical Therapy Visit Type Type Treatment Note Visit Start Time 09:12 Visit Stop Time 09:33 Total Visit Minutes 31 Number of V BELT [employer] AND [employer]ER Visits 1 Physical Therapy Visit Comments Patient Comments Pt agreeable to working w/ therapy. Therapy Pain Assessment Pain When Pain Assessed During Mobility Pain Present Pain Present Pain Reported Location back Intensity 5 Pain Behaviors Facial Grimacing,Guarding, Moaning Pain Management Techniques Re-positioning,Timing of Activity with Medications M4 PT-IP Mobility and Gait Start: 02/15/20 15:11 Freq: NEEDED Status: Active Protocol: Document 02/17/20 10:16 HH (Rec: 02/17/20 10:28 [id number]) PT-Bed Mobility Assessment Rolling Type of Rolling Log Rolling,Roll to Right Level of Assist Standby Assistance Scooting Scooting to Edge of Bed Standby Assistance PT-Transfer Assessment Sit to and From Stand Sit to and from Stand Standby Assistance,Use of Upper Extremities Equipment Transfer Assistive Device Gait Belt,Front Wheeled Walker Orthotic/Prosthetic Devices or Brace: No Transfers Transfer Destination Bed,Chair Transfer Technique pt ambulated with FWW Transfer Ability Level of Assist Standby Assistance,Contact Guard Assistance,Use of Upper Extremities Comments Mobility Comments Pt in bed upon arrival from therapy w/ HOB elevated. Pt reports leg spasm cont. Pt SBA for log roll to right followed by SL <> sit SBA without using bedrails but slowly. Pt then scooted towards EOB very slowly as well d/t pain 5/10. He was able to stand up after with SBA primarily pushing off through UEs. He then began to amb around [facility] and completed PF step climbing. He was also able to stand unsupportedly for a few times while this PT demonstrated climbing techniques. He was able to walk back to room with SBA/CGA . He was left in room standing next to bedside for nurse to manage wound dressing. Gait Assessment Gait Gait Assistance Required: Standby Assistance,1 Person Assist Distance (Feet) 250 Able to Maintain Weight Bearing Status Yes During Gait Assistive Devices Assistive Device Gait Belt,Front Wheeled Walker Orthotic/Prosthetic Devices or Brace: No Gait Deviations General Gait Pattern Antalgic,Decreased Stride Length,Decreased Feet Clearance,Step-to Gait Factors Limiting Gait Function Factors Limiting Gait Function Decreased Activity Tolerance, Decreased Strength,Limited Range of Motion,Pain,Poor Balance,Poor Safety Awareness Comments Gait Comments Pt completed amb around [facility] without w/c follow. He was slow overall but steady. Stair Climbing Assessment Evaluation Level of Assist On Stairs Contact Guard Assistance,1 Person Assistance Devices Stair Climbing Assistive Devices Front Wheel Walker Technique/Endurance Stair Climbing Direction Ascend and Descend Stair Climbing Technique Step to Step Number of Steps Climbed 1 Stair Climbing Set # Repetitions (reps) 2 Comments Stair Climbing Comments pt initially used L leg to descend and ascend but that was his weaker leg. This PT educated him to lead with R for ascend and L for descend. He completed both sets slowly but safely. PT-Balance Assessment Sitting Balance and Reactions Static Sitting Balance Ability Normal Dynamic Sitting Balance Ability Normal Standing Balance and Reactions Static Standing Balance Ability Good Dynamic Standing Balance Ability Good Device Used FWW M5 PT-IP Objective Assessments Start: 02/15/20 15:11 Freq: NEEDED Status: Active Protocol: Document 02/15/20 16:59 (Rec: 02/15/20 17:18 [id number]) Orientation Orientation/Cognition Level of Alertness Alert Orientation Name,Age,Birthday,Month,Date, Year,Day of Week,Place, Situation Language Function Ability No Deficits Noted Safety Awareness Understands Safety Issues Memory Description No Deficits Noted Gross Range of Motion Upper Extremity ROM Assessment Within Functional Limits Lower Extremity ROM Assessment Within Functional Limits Strength Upper Extremity Strength Assessment Within Functional Limits Lower Extremity Strength Assessment Bilaterally Impaired Hip 3+/5 Knee 4-/5 Ankle 5/5 Coordination Assessment Gross Coordination Gross Coordination WNL Sensation Assessment Sensation Gross Sensation WNL Muscle Tone Muscle Tone WNL Yes M6 PT-IP Treatment Start: 02/15/20 15:11 Freq: NEEDED Status: Active Protocol: Document 02/16/20 12:20 KS (Rec: 02/16/20 13:06 KS [id number]) Physical Therapy Treatment Education Education Provided Precautions,Safety M7 PT-IP Assessment and Plan Start: 02/15/20 15:11 Freq: NEEDED Status: Active Protocol: Document 02/17/20 10:16 HH (Rec: 02/17/20 10:28 HH [id number]) PT Summary Assessment and Plan Summary Impairments Pain,ROM,Strength,Balance,Bed Mobility,Transfers,Gait, Activity Tolerance Progress Towards Goals Slow Progress due to Pain,Safe For Discharge Assessment Summary pt SBA/ CGA for all mobility but slowly d/t pain. There are noticeable weakness on B LEs (L>R) but pt was steady. Pt felt most painful with bed mobility and transfer. Pt did complete all his rehab goals and do have adequate family support. Pt is safe to d/c home at this point. Frequency of Treatment Frequency Of Treatment Discharge Recommendations To Nursing Amount of Assist Needed Standby Assistance,1 Person Assist Discharge Recommendations PT Discharge Recommendations Home with Assistance Transportation Needs at Discharge Private Vehicle
--- NOTE | 2020-02-17 11:18 | CM.DPC ---
DCP: continued: Case received, EMR reviewed and d/c order is noted. PT Avery saw pt today and has cleared him for d/c to home setting. Pt is agreeable to same and his will be arriving late this morning to take him home.
--- NOTE | 2020-02-22 16:05 | PM.DS.1 ---
History of Present Illness History of Present Illness Date Patient Seen: 02/17/20 Time Patient Seen: 12:06 Date of Onset of Symptoms: 06/09/19 Chief complaint: inpt Narrative: Mr. Webber has been having worsening back pain and radicular pain failing conservative management for over 3 months. After discussing risks and benefits of treatment options, patient elected to proceed with surgery treatment. Discharge Providers Provider Date of admission: 02/15/20 06:23 Discharge Date: 02/17/20 Primary care physician: Trevor Alaniz MD Consults: 02/15/20 13:46 Consult to Occupational Therapy Evaluate & Treat Comment: Physician Instructions: Evaluate and treat Consult to Physical Therapy Evaluate & Treat Comment: Physician Instructions: Evaluate and Treat Discharge provider: Albertina Martin MD Exam Vital Signs (past 8 hours): Oxygen Delivery Method Room Air Oxygen Flow Rate 0 Objective Labs Result Diagrams: 02/16/20 05:15 Discharge Assessment & Plan Assessment and Plan Assessment: Patient has been progressing with PT. Patient is cleared by PT/OT to be discharged to home. Patient was neurovascularly intact. Patient's dressing was clean and dry on exam. Plan of Treatment: Patient will be discharged to home in stable condition. Patient will f/u with Dr. Martin for 2 week post op appointment and bill removal. Patient is discharged to home with pain medications along with discharge instructions. Patient is instructed to be resuming Xeralto on 02/20. Discharge Plan Discharge Plan Patient Disposition: Home Discharge comment: DC home today after PT Discharge orders & Medications Prescriptions: New diazepam 5 mg Tablet 5 mg PO Q4HR PRN (Reason: Spasms) Qty: 60 RF: 0 oxycodone 10 mg Tablet 5 - 10 mg PO Q4-5H PRN (Reason: Pain, Severe (7-10)) Qty: 90 RF: 0 oxycodone [OxyContin] 10 mg Tablet,Oral Only,Ext.Rel.12 Hr 10 mg PO BID Qty: 30 RF: 0 Continued atorvastatin [Lipitor] 80 MG tablet 20 mg PO HS Qty: 30 RF: 0 carvedilol [Coreg] 25 MG tablet 12.5 mg PO BID Qty: 0 RF: 0 metformin [Glucophage XR] 500 MG tablet extended release 24 hr 500 mg PO DAILY Qty: 0 RF: 0 epinephrine 0.3 MG/0.3 ML auto-injector 0.3 mg IM PRN PRN (Reason: Allergic Reaction) Qty: 0 RF: 0 acetaminophen 325 mg Tablet 650 mg PO Q6HR PRN (Reason: Pain, Mild (1-3)) Qty: 0 RF: 0 Xarelto 20 mg Tablet 20 mg PO DAILY Qty: 0 RF: 0 Follow up/Referrals: Albertina Martin MD [Physician] - (Post Operative follow up appointment as previously scheduled) Trevor Alaniz MD [Primary Care Provider] - Discharge Health Status Multidrug resistant organism: No MDRO Diet/Activity/Treatments Diet: Diet as Tolerated and Regular Activity: Limit bending and twisting Skin/Wound/Dressing Care Report to your healthcare provider any signs of infection, such as:: chills, fever, night sweats, increased pain, unusual drainage and unusual redness Dressing: Keep dressing clean dry intact May shower with dressing covered Visit Report/Discharge Packet Instructions: How to Prevent Falls, DI for Postoperative Pain, DI for Prescription Opioid Use, Oxycodone, DI for Transforaminal Lumbar Interbody Fusion Stand Alone Forms: Surgery Discharge Visit Report Forms: Patient Portal/API, Stroke Signs & Symptoms Discharge Data Primary Care Provider: Trevor Alaniz Discharges patient from system. Discharge Date/Time: 02/17/20 11:25 Quality VTE Deep Vein Thrombosis/Pulmonary Embolism Present on Admission: No
== END 2020-02-17 11:25 | disposition home or self-care (01) | DRG 454 ==
PROVIDERS: Admitting Provider Orthopaedic Surgery Orthopaedic Surgery of the Spine; PCP Family Medicine; Referring Provider Orthopaedic Surgery Orthopaedic Surgery of the Spine; Visit Provider Orthopaedic Surgery Orthopaedic Surgery of the Spine
PROC: 0SG00AJ Fusion of Lumbar Vertebral Joint with Interbody Fusion Device, Posterior Approach, Anterior Column, Open Approach (ICD-10-PCS; principal; 2020-02-15 07:45)
DX: M48.061 Spinal stenosis, lumbar region without neurogenic claudication (principal); M96.0 Pseudarthrosis after fusion or arthrodesis; M48.07 Spinal stenosis, lumbosacral region; M96.1 Postlaminectomy syndrome, not elsewhere classified; M21.372 Foot drop, left foot; M47.26 Other spondylosis with radiculopathy, lumbar region; I48.91 Unspecified atrial fibrillation; I25.10 Atherosclerotic heart disease of native coronary artery without angina pectoris; R73.03 Prediabetes; Z79.84 Long term (current) use of oral hypoglycemic drugs; Z79.01 Long term (current) use of anticoagulants; Z01.812 Encounter for preprocedural laboratory examination; Z11.59 Encounter for screening for other viral diseases
CPT/HCPCS: 36415; 72100; 76000; 81001; 82962; 85014; 85018; 87635; 97116; 97161; 97165; 97530; C1776; C9290; J0330; J0690; J1100; J1170; J2250; J2405; J2704; J3010